=== PATIENT | male | born 1955 | race Caucasian/White ===

== ENCOUNTER 2017-07-04 15:06 | Emergency (ER) | payer OTHER ==
[2017-07-04 15:20] VITALS: RESP 20; TEMP 98
[2017-07-04] MEDS ORDERED: ceFAZolin 1,000 MG VIAL IM STA (15:26)
--- NOTE | 2017-07-04 15:43 | ED ---
General Adult HPI - General Chief complaint: Wound/Laceration Stated complaint: thumb lac-sent by [email or web address] Time Seen by Provider: 07/04/17 15:25 Source: patient Mode of arrival: ambulatory Limitations: no limitations - History of Present Illness Initial comments: 62-year-old male presents to the emergency department for a chief complaint of laceration to the left thumb. Patient states he was using a table saw today when he lacerated his thumb. Patient went to [facility] where he had an x-ray performed which demonstrated a fracture of the distal phalanx of the left thumb. Patient states he is left-handed. According to the patient At [facility] the wound was soaked for 10 minutes in sterile water and iodine and numbed with lidocaine. He presented to the emergency department with a wrap on his left thumb. X-rays were uploaded into our system. Patient states he also had a tetanus shot at [facility]. Patient states he has full sensation in his thumb and has full range of motion in his right thumb. Patient states he needs more lidocaine to numb it further. - Related Data Home Medications Medication Instructions Recorded Confirmed Beclomethasone Dipropionate [Qvar 1 puff INHALATION RT-DAILY 09/16/14 12/26/14 80 mcg/puff] Amiodarone [Cordarone] 200 mg PO DAILY 12/26/14 12/26/14 Metoprolol Tartrate [Lopressor] 25 mg PO BID 12/26/14 12/26/14 Tiotropium 18 Mcg/Puff [Spiriva] 1 cap INHALATION RT-DAILY 12/26/14 12/26/14 traMADol HCl [Ultram] 50 mg PO Q6H PRN 12/26/14 12/26/14 Previous Rx's Medication Instructions Recorded Colchicine [Colcrys] 0.6 mg PO BID #60 tab 10/11/14 Omeprazole [PriLOSEC] 20 mg PO AC-BID #30 capsule. 10/11/14 Indomethacin [Indocin] 25 mg PO BID #20 cap 12/29/14 Cephalexin [Keflex] 250 mg PO Q6HR #40 cap 07/04/17 Allergies Allergy/AdvReac Type Severity Reaction Status Date / Time No Known Allergies Allergy Verified 07/04/17 15:20 Review of Systems ROS Statement: Those systems with pertinent positive or pertinent negative responses have been documented in the HPI. ROS Other: All systems not noted in ROS Statement are negative. Past Medical History Past Medical History: Atrial Fibrillation, Chest Pain / Angina, COPD, Hypertension, Renal Disease Additional Past Medical History / Comment(s): 12/26/14 Pt presented to Health system ER with about 3 months of having L sided chest pain. He was seen at [facility] on Wednesday and was to have a Ccath tomorrow. A cat scan done at [facility] 12/26/14 showed R renal calculus, diverticulosis, and small to moderate pericardial effusion. Pt's L sided sharp achy chest pain became worse this morning so pt decided to come to [facility] this AM. Pt was last admitted to [facility] with paroxysmal Afib, chest pain possible pericarditis, moderate pericardial effusion-an echo at that time showed moderate pericardial effusion, EF of 50-55%, mild mitral and tricuspid regurg. Other HX: Paroxysmal AFib, Chronic neck pain-= HAD MRI AND DIAGNOSED WITH BULGING NECK DISC. SENT TO PAIN MANAGEMENT HAD EPIDURAL INJECTIONS , HISTORY OF several KIDNEY STONES, hematuria, L and R wrist fx in the past. History of Any Multi-Drug Resistant Organisms: None Reported Past Surgical History: No Surgical Hx Reported, Tonsillectomy Additional Past Surgical History / Comment(s): APPROX 30 YEARS AGO HAD LITHOTRIPSY AT [place] Past Anesthesia/Blood Transfusion Reactions: No Reported Reaction Past Psychological History: No Psychological Hx Reported Smoking Status: Former smoker Past Alcohol Use History: None Reported Past Drug Use History: None Reported - Past Family History Mother History Unknown: Yes Additional Family Medical History / Comment(s): TAKES NO MEDICATIONS IS AGE 8787 YEARS OLD Father Family Medical History: Cancer Additional Family Medical History / Comment(s): STOMACH CANCER General Exam Limitations: no limitations Head exam: Present: atraumatic, normocephalic, normal inspection Respiratory exam: Present: normal lung sounds bilaterally. Absent: respiratory distress, wheezes, rales, rhonchi, stridor Cardiovascular Exam: Present: regular rate, normal rhythm, normal heart sounds. Absent: systolic murmur, diastolic murmur, rubs, gallop, clicks Extremities exam: Present: full ROM (Full range of motion in the left thumb.), normal capillary refill (Refill less than 2 seconds in the upper extremities bilaterally including the left thumb.), other (There is a 2.5 cm laceration to the palmar aspect of the left thumb. Nail is intact. There is a slight 0.5 cm disruption of skin as it was removed by the saw.). Absent: tenderness, joint swelling Course Vital Signs 07/04/17 07/04/17 15:17 16:20 Temperature 98.0 F 98.0 F Pulse Rate 56 L 66 Respiratory 20 20 Rate Blood Pressure 140/78 124/78 O2 Sat by Pulse 98 100 Oximetry Procedures - Procedures Initial comment: Body area: palmar aspect of left thumb Laceration length: 2.5 cm Foreign bodies: no foreign bodies Tendon involvement: none Nerve involvement: none Vascular damage: no Anesthesia: local infiltration Local anesthetic: 2 mL 1% lidocaine given to each side of the thumb to perform a digital block Preparation: Patient was prepped and draped in the usual sterile fashion. Irrigation solution: Sterile water Irrigation method: sterile water jet lavage Skin closure: 6 4-0 Ethilon using sterile technique Number of sutures: 6 Technique: interupted Dressing: antibiotic ointment/ tube gauze Patient tolerance: Patient tolerated the procedure well with no immediate complications. Medical Decision Making - Medical Decision Making 62-year-old male presents to the emergency department with laceration to the left thumb. Patient is left-handed. Patient went to [facility] her he received an x-ray. The physician at [facility] read the x-ray as a fracture to the distal phalanx of the left thumb. Patien's laceration was soaked in iodine and water and cleaned at [facility]. It was also numbed. Upon presentation patient neurovascular status of the left thumb was intact. Capillary refill less than 2 seconds. Radial pulse 2+ in the left hand. Patient had full range of motion and sensation of the left thumb. Wound was further cleaned with iodine and sterile water. 6 4-0 Ethilon sutures were placed in the thumb. Patient was given a shot of Ancef and will continue to take by mouth Keflex in case there is a fracture in the thumb. Patient was given tetanus shot at the urgent care.. I do not visualize a fracture of the thumb on the x-ray obtained at [facility] but patient will still be sent to orthopedics. Patient states he will follow up tomorrow. He was educated on signs of infection and will return to the emergency Department if he notices any signs of infection. Disposition Clinical Impression: Laceration Disposition: HOME SELF-CARE Condition: Good Instructions: Care For Your Stitches (ED), Laceration (ED) Additional Instructions: Please take ibuprofen or Tylenol for pain relief. Please follow-up with orthopedics in one to 2 days. Please return to the emergency department if you notice signs of infection or worsening symptoms. Prescriptions: Cephalexin [Keflex] 250 mg PO Q6HR #40 cap Referrals: Erin Pederson MD [Primary Care Provider] - 1-2 days Georgi Amaya DO [Doctor of Osteopathic Medicine] - 1-2 days Time of Disposition: 16:14
[2017-07-04 16:22] VITALS: BP 124/78; PULSE 66
== END 2017-07-04 16:22 | disposition home or self-care (01) ==
LOC: EC 15:06
DX: S61.012A Laceration without foreign body of left thumb without damage to nail, initial encounter (principal); J44.9 Chronic obstructive pulmonary disease, unspecified; I10 Essential (primary) hypertension; I48.0 Paroxysmal atrial fibrillation; Z87.891 Personal history of nicotine dependence; Z79.52 Long term (current) use of systemic steroids; Z79.899 Other long term (current) drug therapy; W31.2XXA Contact with powered woodworking and forming machines, initial encounter; Y93.89 Activity, other specified; Y92.89 Other specified places as the place of occurrence of the external cause
CPT/HCPCS: 99283; 12001; 96372; J0690

== ENCOUNTER 2023-04-09 16:47 | Inpatient (IN) | payer MEDICARE ==
--- NOTE | 2023-04-09 17:03 | ED ---
General Adult HPI - General Stated complaint: SAKSHI-Afib Time Seen by Provider: 04/09/23 17:01 Source: patient, RN notes reviewed - History of Present Illness Initial comments: 67-year-old male presents to the emergency appointment for evaluation of cough, congestion 1 week. He states that today he noticed that his heart rate was elevated at home. Patient reports that she started to develop some right-sided chest discomfort and shortness of breath. Patient reports a history of COPD and afib. He states that he is not currently on his medications. He states that he has not been on them for 5 years. He is not on blood thinners. - Related Data Home Medications Medication Instructions Recorded Confirmed No Known Home Medications 04/09/23 04/09/23 Allergies Allergy/AdvReac Type Severity Reaction Status Date / Time No Known Allergies Allergy Verified 04/09/23 20:03 Review of Systems ROS Statement: Those systems with pertinent positive or pertinent negative responses have been documented in the HPI. ROS Other: All systems not noted in ROS Statement are negative. Past Medical History Past Medical History: Atrial Fibrillation, Chest Pain / Angina, COPD, Hypertension, Renal Disease Additional Past Medical History / Comment(s): 12/26/14 Pt presented to [facility] ER with about 3 months of having L sided chest pain. He was seen at [facility] on Wednesday and was to have a Ccath tomorrow. A cat scan done at [facility] 12/26/14 showed R renal calculus, diverticulosis, and small to moderate pericardial effusion. Pt's L sided sharp achy chest pain became worse this morning so pt decided to come to [facility] this AM. Pt was last admitted to [facility] 10/09/14 with paroxysmal Afib, chest pain possible pericarditis, moderate pericardial effusion-an echo at that time showed moderate pericardial effusion, EF of 50-55%, mild mitral and tricuspid regurg. Other HX: Paroxysmal AFib, Chronic neck pain-= HAD MRI AND DIAGNOSED WITH BULGING NECK DISC. SENT TO PAIN MANAGEMENT HAD EPIDURAL INJECTIONS , HISTORY OF several KIDNEY STONES, hematuria, L and R wrist fx in the past. History of Any Multi-Drug Resistant Organisms: None Reported Past Surgical History: No Surgical Hx Reported, Tonsillectomy Additional Past Surgical History / Comment(s): APPROX 30 YEARS AGO HAD LITHOTRIPSY AT [place] Past Anesthesia/Blood Transfusion Reactions: No Reported Reaction Past Psychological History: No Psychological Hx Reported Past Alcohol Use History: None Reported Past Drug Use History: None Reported - Past Family History Mother History Unknown: Yes Additional Family Medical History / Comment(s): TAKES NO MEDICATIONS IS AGE 8787 YEARS OLD Father Family Medical History: Cancer Additional Family Medical History / Comment(s): STOMACH CANCER General Exam Limitations: no limitations General appearance: alert, other (Mildly dyspneic) Head exam: Present: atraumatic, normocephalic, normal inspection Eye exam: Present: normal appearance, PERRL, EOMI. Absent: scleral icterus, conjunctival injection, periorbital swelling ENT exam: Present: normal exam, mucous membranes moist Neck exam: Present: normal inspection. Absent: tenderness, meningismus, lymphadenopathy Respiratory exam: Present: wheezes. Absent: normal lung sounds bilaterally, respiratory distress, rales, rhonchi, stridor Cardiovascular Exam: Present: tachycardia, irregular rhythm, normal heart sounds. Absent: systolic murmur, diastolic murmur, rubs, gallop, clicks GI/Abdominal exam: Present: soft, normal bowel sounds. Absent: distended, tenderness, guarding, rebound, rigid Back exam: Present: normal inspection Neurological exam: Present: alert, oriented X3 Psychiatric exam: Present: normal affect, normal mood Skin exam: Present: warm, dry, intact, normal color. Absent: rash Course Vital Signs 04/09/23 04/09/23 04/09/23 16:59 20:14 20:27 Temperature 98.9 F Pulse Rate 89 123 H 140 H Respiratory 20 Rate Blood Pressure 153/94 O2 Sat by Pulse 95 Oximetry 04/09/23 04/09/23 21:17 23:00 Temperature Pulse Rate 139 H 94 Respiratory 20 20 Rate Blood Pressure 135/81 153/80 O2 Sat by Pulse 97 97 Oximetry Medical Decision Making - Medical Decision Making Was pt. sent in by a medical professional or institution (, PA, TEACHER EMOTIONALLY IMPAIRED, urgent care, hospital, or shelter...) When possible be specific @ -No Did you speak to anyone other than the patient for history (EMS, parent, family, police, friend...)? What history was obtained from this source @ -No Did you review nursing and triage notes (agree or disagree)? Why? @ -I reviewed and agree with nursing and triage notes Were old charts reviewed (outside hosp., previous admission, EMS record, old EKG, old radiological studies, urgent care reports/EKG's, shelter records)? Report findings @ -No old charts were reviewed Differential Diagnosis (chest pain, altered mental status, abdominal pain women, abdominal pain men, vaginal bleeding, weakness, fever, dyspnea, syncope, headache, dizziness, GI bleed, back pain, seizure, CVA, palpatations, mental health, musculoskeletal)? @ -Differential Dyspnea: Coronary syndrome, arrhythmia, tamponade, asthma, COPD, pulmonary embolism, pneumonia, pneumothorax, pulmonary effusion, anaphylaxis, diabetic ketoacidosis, flailed chest, pulmonary contusion, diaphragmatic rupture, anemia, neuromuscular, this is not meant to be an all-inclusive list. EKG interpreted by me (3pts min.). @ -EKG at 1750 shows A. fib with RVR rate 119, QRS 83, QTQTc [id number] X-rays interpreted by me (1pt min.). @ -Chest x-ray shows no acute process, COPD changes CT interpreted by me (1pt min.). @ -None done U/S interpreted by me (1pt. min.). @ -None done What testing was considered but not performed or refused? (CT, X-rays, U/S, labs)? Why? @ -None What meds were considered but not given or refused? Why? @ -None Did you discuss the management of the patient with other professionals (professionals i.e. , PA, TEACHER EMOTIONALLY IMPAIRED, lab, RT, psych nurse, rn social work, lock up worker, teacher, principal gifts officer, director case management)? Give summary @ -Case discussed with Estefany Martínez with [facility] who is accepting of the admission Was smoking cessation discussed for >3mins.? @ -No Was critical care preformed (if so, how long)? @ -No Were there social determinants of health that impacted care today? How? (Homelessness, low income, unemployed, alcoholism, drug addiction, transportation, low edu. Level, literacy, decrease access to med. care, shelter, rehab)? @ -No Was there de-escalation of care discussed even if they declined (Discuss DNR or withdrawal of care, Hospice)? DNR status @ -No What co-morbidities impacted this encounter? (DM, HTN, Smoking, COPD, CAD, Cancer, CVA, ARF, Chemo, Hep., AIDS, mental health diagnosis, sleep apnea, morbid obesity)? @ -None Was patient admitted / discharged? Hospital course, mention meds given and route, prescriptions, significant lab abnormalities, going to OR and other pertinent info. @ -Admitted. Patient is admitted to the emergency department for evaluation of rapid heart rate and cough, congestion. EKG shows A. fib with RVR. Chest x-ray shows no acute process. CBC shows WBC 9.7, hemoglobin 18.5, coagulation studies within normal limits; CMP shows sodium 139, potassium 4.5, creatinine 1.21, negative troponin. Patient did test positive for RSV. Patient was put a bolus of Cardizem 15 mg and was started on a Cardizem drip. Patient will be admitted for A. fib with RVR with cardiology consultation. Case was discussed with Estefany with [facility] who is accepting of the admission. Patient stable at time of admission. Case discussed with Dr. Feliciano Undiagnosed new problem with uncertain prognosis? @ -No Drug Therapy requiring intensive monitoring for toxicity (Heparin, Nitro, Insulin, Cardizem)? @ -No Were any procedures done? @ -No Diagnosis/symptom? @ -afib with RVR Acute, or Chronic, or Acute on Chronic? @ -acute Uncomplicated (without systemic symptoms) or Complicated (systemic symptoms)? @ -uncomplicated Side effects of treatment? @ -No Exacerbation, Progression, or Severe Exacerbation? @ -No Poses a threat to life or bodily function? How? (Chest pain, [place], [place], pneumonia, PE, COPD, DKA, ARF, appy, cholecystitis, CVA, Diverticulitis, Homicidal, Suicidal, threat to staff... and all critical care pts) @ -No - Lab Data Result diagrams: 04/09/23 18:41 04/09/23 18:41 Lab Results 04/09/23 04/09/23 04/09/23 Range/Units 18:41 18:41 18:41 WBC 9.7 (3.8-10.6) k/uL RBC 5.69 (4.30-5.90) m/uL Hgb 18.5 H (13.0-17.5) gm/dL Hct 53.6 H (39.0-53.0) % MCV 94.2 (80.0-100.0) fL MCH 32.5 (25.0-35.0) pg MCHC 34.5 (31.0-37.0) g/dL RDW 13.0 (11.5-15.5) % Plt Count 140 L (150-450) k/uL MPV 10.9 Neutrophils % 80 % Lymphocytes % 8 % Monocytes % 10 % Eosinophils % 0 % Basophils % 0 % Neutrophils # 7.7 (1.3-7.7) k/uL Lymphocytes # 0.8 L (1.0-4.8) k/uL Monocytes # 0.9 (0-1.0) k/uL Eosinophils # 0.0 (0-0.7) k/uL Basophils # 0.0 (0-0.2) k/uL PT 12.0 (10.0-12.5) sec INR 1.1 (<1.2) APTT 26.1 (22.0-30.0) sec Sodium (137-145) mmol/L Potassium (3.5-5.1) mmol/L Chloride (98-107) mmol/L Carbon Dioxide (22-30) mmol/L Anion Gap mmol/L BUN (9-20) mg/dL Creatinine (0.66-1.25) mg/dL Est GFR (CKD-EPI)AfAm (>60 ml/min/1.73 sqM) Est GFR (CKD-EPI)NonAf (>60 ml/min/1.73 sqM) Glucose (74-99) mg/dL Calcium (8.4-10.2) mg/dL Magnesium (1.6-2.3) mg/dL Total Bilirubin (0.2-1.3) mg/dL AST (17-59) U/L ALT (4-49) U/L Alkaline Phosphatase (38-126) U/L Troponin I (0.000-0.034) ng/mL Total Protein (6.3-8.2) g/dL Albumin (3.5-5.0) g/dL Influenza Type A (PCR) Not Detected (Not Detectd) Influenza Type B (PCR) Not Detected (Not Detectd) RSV (PCR) Detected A (Not Detectd) SARS-CoV-2 (PCR) Not Detected (Not Detectd) 04/09/23 04/09/23 Range/Units 18:41 19:38 WBC (3.8-10.6) k/uL RBC (4.30-5.90) m/uL Hgb (13.0-17.5) gm/dL Hct (39.0-53.0) % MCV (80.0-100.0) fL MCH (25.0-35.0) pg MCHC (31.0-37.0) g/dL RDW (11.5-15.5) % Plt Count (150-450) k/uL MPV Neutrophils % % Lymphocytes % % Monocytes % % Eosinophils % % Basophils % % Neutrophils # (1.3-7.7) k/uL Lymphocytes # (1.0-4.8) k/uL Monocytes # (0-1.0) k/uL Eosinophils # (0-0.7) k/uL Basophils # (0-0.2) k/uL PT (10.0-12.5) sec INR (<1.2) APTT (22.0-30.0) sec Sodium 139 (137-145) mmol/L Potassium 4.5 (3.5-5.1) mmol/L Chloride 101 (98-107) mmol/L Carbon Dioxide 24 (22-30) mmol/L Anion Gap 14 mmol/L BUN 16 (9-20) mg/dL Creatinine 1.21 (0.66-1.25) mg/dL Est GFR (CKD-EPI)AfAm 70 (>60 ml/min/1.73 sqM) Est GFR (CKD-EPI)NonAf 61 (>60 ml/min/1.73 sqM) Glucose 103 H (74-99) mg/dL Calcium 9.8 (8.4-10.2) mg/dL Magnesium 2.0 (1.6-2.3) mg/dL Total Bilirubin 1.8 H (0.2-1.3) mg/dL AST 36 (17-59) U/L ALT 29 (4-49) U/L Alkaline Phosphatase 97 (38-126) U/L Troponin I <0.012 (0.000-0.034) ng/mL Total Protein 9.5 H (6.3-8.2) g/dL Albumin 4.9 (3.5-5.0) g/dL Influenza Type A (PCR) (Not Detectd) Influenza Type B (PCR) (Not Detectd) RSV (PCR) (Not Detectd) SARS-CoV-2 (PCR) (Not Detectd) Disposition Clinical Impression: Atrial fibrillation with RVR Disposition: ADMITTED IP TO THIS HOSP Condition: Stable Is patient prescribed a controlled substance at d/c from ED?: No
--- NOTE | 2023-04-09 17:29 | XR ---
EXAMINATION TYPE: XR chest 2V DATE OF EXAM: 04/09/2023 5:21 PM CLINICAL INDICATION:Male, 67 years old with history of cough, congestion; [facility] COMPARISON: Chest radiographs from 12/26/2014 TECHNIQUE: XR chest 2V Frontal and lateral views of the chest. FINDINGS: Lungs/Pleura: There is flattening of the diaphragm with increased lucency of the lungs. No evidence o f pneumothorax, pleural effusion or focal consolidation. Pulmonary vascularity: Unremarkable. Heart/mediastinum: Cardiomediastinal silhouette is unremarkable. Musculoskeletal: No acute osseous pathology. IMPRESSION: 1. No acute cardiopulmonary disease process. 2. COPD changes.
[2023-04-09] MEDS ORDERED: IPRATROPIUM-ALBUTEROL 3 ML NEB INHALATION STA (19:02)
[2023-04-09] MEDS ORDERED: SODIUM CHLORIDE 0.9% 1,000 ML IV STA (19:02)
[2023-04-09] MEDS ORDERED: DILTIAZEM DRIP BOLUS FROM BAG 1 MG SOLN IV ONE ×2 (19:02→21:17)
[2023-04-09 19:25] LABS: ALT 29 U/L (4-49); AST 36 U/L (17-59); African American GFR (CKD) 70 (>60 ml/min/1.73 sqM); Albumin 4.9 g/dL (3.5-5.0); Alkaline Phosphatase 97 U/L (38-126); Anion Gap 14 mmol/L; Basophils % (A) 0 %; Blood Urea Nitrogen 16 mg/dL (9-20); Calcium 9.8 mg/dL (8.4-10.2); Carbon Dioxide 24 mmol/L (22-30); Chloride 101 mmol/L (98-107); Eosinophils % (A) 0 %; Glucose 103 mg/dL (74-99); HCT 53.6 % (39.0-53.0); HGB 18.5 gm/dL (13.0-17.5); Lymphocytes # (A) 0.8 k/uL (1.0-4.8); Lymphocytes % (A) 8 %; MCH 32.5 pg (25.0-35.0); MCHC 34.5 g/dL (31.0-37.0); MCV 94.2 fL (80.0-100.0); Mean Platelet Volume 10.9; Monocytes # (A) 0.9 k/uL (0-1.0); Monocytes % (A) 10 %; Neutrophils # (A) 7.7 k/uL (1.3-7.7); Neutrophils % (A) 80 %; Non-African American GFR(CKD) 61 (>60 ml/min/1.73 sqM); Platelet Count 140 k/uL (150-450); Potassium 4.5 mmol/L (3.5-5.1); RBC 5.69 m/uL (4.30-5.90); Sodium 139 mmol/L (137-145); Total Bilirubin 1.8 mg/dL (0.2-1.3); Total Protein 9.5 g/dL (6.3-8.2); WBC 9.7 k/uL (3.8-10.6)
[2023-04-09] MEDS: DILTIAZEM 125 MG in SODIUM CHLORIDE 0.9% 100 ML IV SCH (19:48)
[2023-04-09 19:49] LABS: INR 1.1 (<1.2); Partial Thromboplastin Time 26.1 sec (22.0-30.0)
[2023-04-09] MEDS: SODIUM CHLORIDE 0.9% 1,000 ML IV SCH (19:55)
[2023-04-09] MEDS ORDERED: MAGNESIUM SULFATE-D5W PMX 1 GM in DEXTROSE/WATER 1 100ML.BAG IVPB ONE (21:17)
[2023-04-09] MEDS ORDERED: IBUPROFEN 400 MG TAB PO PRN (22:24)
[2023-04-09] MEDS ORDERED: ACETAMINOPHEN TAB 325 MG TAB PO PRN (22:24)
[2023-04-09] MEDS ORDERED: MORPHINE SULFATE 4 MG/ML SYRINGE IV PRN (22:24)
[2023-04-09] MEDS ORDERED: NALOXONE 0.4 MG/ML 1 ML VIAL IV PRN (22:24)
[2023-04-10] MEDS: SODIUM CHLORIDE 0.9% 1,000 ML IV SCH ×3 (03:40→18:27)
[2023-04-10] MEDS: DILTIAZEM 125 MG in SODIUM CHLORIDE 0.9% 100 ML IV SCH (06:30)
[2023-04-10] MEDS ORDERED: DEXTROSE 50% SYRINGE 50 ML IVP PRN ×2 (07:44)
--- NOTE | 2023-04-10 07:45 | P.HPIM ---
History of Present Illness This is a pleasant 67 years old male with past medical history of atrial fibrillation, COPD, hypertension, kidney stones, diverticulosis Patient presents because of feeling shortness of breath with cough and yellowish phlegm for the last few days, he has not a protective cuff in the beginning but no yellow and then creamy color as per patient His chest pain in the middle about 8/10, nonradiating. About pressure Patient in mild to moderate respiratory distress with limits his ability to answer questions and history information He quit smoking about 6 years ago, occasional alcohol no illicit drugs. Nice change in his urine or bowel habits, no abdominal pain vomiting diarrhea, no dysuria or urgency. Weakness or numbness or dizziness. Review of Systems Review of systems CONSTITUTIONAL: No fever, no malaise, no fatigue. HEENT: No recent visual problems or hearing problems. Denied any sore throat. CARDIOVASCULAR: No orthopnea, PND, no palpitations, no syncope. PULMONARY: No chest wall tenderness, no hemoptysis. GASTROINTESTINAL: No diarrhea, no nausea, no vomiting, no abdominal pain. Normoactive bowel sounds. NEUROLOGICAL: No headaches, no weakness, no numbness. HEMATOLOGICAL: Denies any bleeding or petechiae. GENITOURINARY: Denies any burning micturition, frequency, or urgency. MUSCULOSKELETAL/RHEUMATOLOGICAL: Denies any joint pain, swelling, or any muscle pain. ENDOCRINE: Denies any polyuria or polydipsia. Past Medical History Past Medical History: Atrial Fibrillation, Chest Pain / Angina, COPD, Hyper tension, Renal Disease Additional Past Medical History / Comment(s): 12/26/14 Pt presented to [facility] ER with about 3 months of having L sided chest pain. He was seen at [facility] on Wednesday and was to have a Ccath tomorrow. A cat scan done at [facility] 12/26/14 showed R renal calculus, diverticulosis, and small to moderate pericardial effusion. Pt's L sided sharp achy chest pain became worse this morning so pt decided to come to [facility] this AM. Pt was last admitted to [facility] 10/09/14 with paroxysmal Afib, chest pain possible pericarditis, moderate pericardial effusion-an echo at that time showed moderate pericardial effusion, EF of 50-55%, mild mitral and tricuspid regurg. Other HX: Paroxysmal AFib, Chronic neck pain-= HAD MRI AND DIAGNOSED WITH BULGING NECK DISC. SENT TO PAIN MANAGEMENT HAD EPIDURAL INJECTIONS , HISTORY OF several KIDNEY STONES, hematur ia, L and R wrist fx in the past. History of Any Multi-Drug Resistant Organisms: None Reported Past Surgical History: No Surgical Hx Reported, Tonsillectomy Additional Past Surgical History / Comment(s): APPROX 30 YEARS AGO [place]OTRIPSY [place] Past Anesthesia/Blood Transfusion Reactions: No Reported Reaction Past Psychological History: No Psychological Hx Reported Past Alcohol Use History: None Reported Past Drug Use History: None Reported - Past Family History Mother History Unknown: Yes Additional Family Medical History / Comment(s): TAKES NO MEDICATIONS IS AGE 8787 YEARS OLD Father Family Medical History: Cancer Additional Family Medical History / Comment(s): STOMACH CANCER Medications and Allergies Home Medications Medication Instructions Recorded Confirmed Type No Known Home Medications 04/09/23 04/09/23 History Allergies Allergy/AdvReac Type Severity Reaction Status Date / Time No Known Allergies Allergy Verified 04/09/23 20:03 Physical Exam Vitals: Vital Signs Temp Pulse Resp BP Pulse Ox 04/10/23 06:00 98.8 F 89 20 145/84 98 04/10/23 03:40 89 20 145/90 98 04/10/23 00:52 91 20 157/107 98 04/09/23 23:00 94 20 153/80 97 04/09/23 21:17 139 H 20 135/81 97 04/09/23 20:27 140 H 04/09/23 20:14 123 H 04/09/23 16:59 98.9 F 89 20 153/94 95 Intake and Output 04/09/23 04/09/23 04/10/23 14:59 22:59 06:59 Intake Total 7.333 92.333 Balance 7.333 92.333 Intake: Intake, IV Titration 7.333 92.333 Amount Diltiazem 125 mg In 7.333 92.333 Sodium Chloride 0.9% 100 ml @ 5 MG/HR 5 mls/hr IV .Q24H [facility] Rx#:[id number] Other: Weight 102.058 kg GENERAL: The patient is alert and oriented x3, not in any acute distress. Well developed, well nourished. HEENT: Pupils are round and equally reacting to light. EOMI. No scleral icterus. No conjunctival pallor. Normocephalic, atraumatic. No pharyngeal erythema. No thyromegaly. CARDIOVASCULAR: S1 and S2 present. No murmurs, rubs, or gallops. -PULMONARY: Chest is clear to auscultation, bilateral expiratory wheezing , no crackles. ABDOMEN: Soft, nontender, nondistended, normoactive bowel sounds. No palpable organomegaly. MUSCULOSKELETAL: No joint swelling or deformity. EXTREMITIES: No cyanosis, clubbing, or pedal edema. NEUROLOGICAL: Gross neurological examination did not reveal any focal deficits. SKIN: No rashes. no petechiae. Results CBC & Chem 7: 04/09/23 18:41 04/09/23 18:41 Labs: Abnormal Lab Results - Last 24 Hours (Table) 04/09/23 04/09/23 04/09/23 Range/Units 18:41 18:41 18:41 Hgb 18.5 H (13.0-17.5) gm/dL Hct 53.6 H (39.0-53.0) % Plt Count 140 L (150-450) k/uL Lymphocytes # 0.8 L (1.0-4.8) k/uL Glucose 103 H (74-99) mg/dL Total Bilirubin 1.8 H (0.2-1.3) mg/dL Total Protein 9.5 H (6.3-8.2) g/dL RSV (PCR) Detected A (Not Detectd) Assessment and Plan Assessment: Acute COPD exacerbation Acute RSV bronchitis Atrial fibrillation with RVR, present on admission hypertension History of kidney stone Area of diverticulosis Plan: Continue with Cardizem drip Continue with normal saline Start IV Solu-Medrol and bronchodilator Start Norvasc 5 mg Cardiology and pulmonary consult Labs and medication were reviewed.. Continue same treatment. Continue with symptomatic treatment. Resume home medication. Monitor labs and vitals. DVT and GI prophylaxis. Further recommendations as per clinical course of the patient DVT prophylaxis: Subcutaneous heparin GI Prophylaxis: Pepcid PT/OT: Pending Prognosis is guarded
[2023-04-10] MEDS: FAMOTIDINE 20 MG/2 ML VIAL IV SCH ×2 (07:59→20:18)
[2023-04-10] MEDS: methylPREDNISolone SOD SUCCI 40 MG/ML 1 ML VIAL IV SCH ×2 (07:59→16:32)
[2023-04-10 08:09] LABS: Glucose,Whole Blood 121 mg/dL (70-110)
[2023-04-10] MEDS: IPRATROPIUM-ALBUTEROL 3 ML NEB INHALATION PRN ×2 (08:23→21:17)
[2023-04-10] MEDS: BUDESONIDE 0.5 MG/2 ML NEBU INHALATION SCH ×2 (08:23→21:17)
[2023-04-10] MEDS ORDERED: HEPARIN SODIUM,PORCINE 5,000 UNIT/ML 1 ML VIAL SQ SCH (09:00)
--- NOTE | 2023-04-10 12:46 | P.CNPUL ---
History of Present Illness Consult date: 04/10/23 Reason for consult: dyspnea History of present illness: This is a 67-year-old male patient, a ex-smoker along with history of chronic A. fib. The patient is not seeing his primary care physician regular basis and the patient is not taking any medications. The patient is currently coming into the hospital because of worsening shortness of breath, chest tightness, wheezing along with A. fib with RVR. The patient is currently on a Cardizem drip for rate control. Further investigation revealed that the patient was infected with RSV. His is also having respiratory illness at home. No fever. No chills. No angina. No palpitations. He is bronchospastic and wheezy and the patient was started on DuoNeb nebulized treatments [id number] and IV Solu- Medrol. He is also on Cardizem drip at 5 mg an hour for rate control. No i ntracardiac evidence for now. Noted the patient is not taking any form of anticoagulation also on outpatient basis. The chest x-ray shows no evidence of any pneumonia. The patient did not see the health diagnostics teacher before. He is not utilizing any form of respiratory medications or inhalers on outpatient basis. He is currently on 3 L with a pulse ox ranging between 95 and 97%. No leg edema. No signs of any congestion heart failure. Review of Systems CONSTITUTIONAL: No fever, no malaise, no fatigue. HEENT: No recent visual problems or hearing problems. Denied any sore throat. CARDIOVASCULAR: No orthopnea, PND, no palpitations, no syncope. PULMONARY: No chest wall tenderness, no hemoptysis. GASTROINTESTINAL: No diarrhea, no nausea, no vomiting, no abdominal pain. Normoactive bowel sounds. NEUROLOGICAL: No headaches, no weakness, no numbness. HEMATOLOGICAL: Denies any bleeding or petechiae. GENITOURINARY: Denies any burning micturition, frequency, or urgency. MUSCULOSKELETAL/RHEUMATOLOGICAL: Denies any joint pain, swelling, or any muscle pain. ENDOCRINE: Denies any polyuria or polydipsia. Past Medical History Past Medical History: Atrial Fibrillation, Chest Pain / Angina, COPD, Hypertension, Renal Disease Additional Past Medical History / Comment(s): 12/26/14 Pt presented to [facility] ER with about 3 months of having L sided chest pain. He was seen at [facility] on Wednesday and was to have a Ccath tomorrow. A cat scan done at [facility] 12/26/14 showed R renal calculus, diverticulosis, and small to moderate pericardial effusion. Pt's L sided sharp achy chest pain became worse this morning so pt [facility] with paroxysmal Afib, chest pain possible pericarditis, moderate pericardial effusion-an echo at that time showed moderate pericardial effusion, EF of 50-55%, mild mitral and tricuspid regurg. Other HX: Paroxysmal AFib, Chronic neck pain-= HAD MRI AND DIAGNOSED WITH BULGING NECK DISC. SENT TO PAIN MANAGEMENT HAD EPIDURAL INJECTIONS , HISTORY OF several KIDNEY STONES, hematuria, L and R wrist fx in the past. History of Any Multi-Drug Resistant Organisms: None Reported Past Surgical History: No Surgical Hx Reported, Tonsillectomy Additional Past Surgical History / Comment(s): APPROX 30 YEARS AGO HAD LITHOTRIPSY AT [facility] Past Anesthesia/Blood Transfusion Reactions: No Reported Reaction Past Psychological History: No Psychological Hx Reported Past Alcohol Use History: None Reported Past Drug Use History: None Reported - Past Family History Mother History Unknown: Yes Additional Family Medical History / Comment(s): TAKES NO MEDICATIONS IS AGE 8787 YEARS OLD Father Family Medical History: Cancer Additional Family Medical History / Comment(s): STOMACH CANCER Medications and Allergies Home Medications Medication Instructions Recorded Confirmed Type No Known Home Medications 04/09/23 04/09/23 History Allergies Allergy/AdvReac Type Severity Reaction Status Date / Time No Known Allergies Allergy Verified 04/09/23 20:03 Physical Exam Vitals: Vital Signs Temp Pulse Resp BP Pulse Ox 04/10/23 11:22 97 20 159/94 97 04/10/23 11:00 100 20 100/60 98 04/10/23 08:35 110 H 20 04/10/23 08:23 110 H 20 95 04/10/23 08:06 107 H 20 145/80 98 04/10/23 06:00 98.8 F 89 20 145/84 98 04/10/23 03:40 89 20 145/90 98 04/10/23 00:52 91 20 157/107 98 04/09/23 23:00 94 20 153/80 97 04/09/23 21:17 139 H 20 135/81 97 04/09/23 20:27 140 H 04/09/23 20:14 123 H 04/09/23 16:59 98.9 F 89 20 153/94 95 Intake and Output 04/09/23 04/10/23 04/10/23 22:59 06:59 14:59 Intake Total 7.333 92.333 Balance 7.333 92.333 Intake: Intake, IV Titration 7.333 92.333 Amount Diltiazem 125 mg In 7.333 92.333 Sodium Chloride 0.9% 100 ml @ 5 MG/HR 5 mls/hr IV .Q24H [facility] Rx#:[id number] Other: Weight 102.058 kg GENERAL: The patient is alert and oriented x3, not in any acute distress. Well developed, well nourished. The patient is currently on 3 L of oxygen by nasal cannula HEENT: Pupils are round and equally reacting to light. EOMI. No scleral icterus. No conjunctival pallor. Normocephalic, atraumatic. No pharyngeal erythema. No thyromegaly. CARDIOVASCULAR: S1 and S2 present. No murmurs, rubs, or gallops. -PULMONARY: Diffuse expiratory wheezes throughout the lung field bilaterally and the patient is prolongation of the exhalation phase of breathing ABDOMEN: Soft, nontender, nondistended, normoactive bowel sounds. No palpable organomegaly. MUSCULOSKELETAL: No joint swelling or deformity. EXTREMITIES: No cyanosis, clubbing, or pedal edema. NEUROLOGICAL: Gross neurological examination did not reveal any focal deficits. SKIN: No rashes. no petechiae. Results - Laboratory Findings CBC and BMP: 04/09/23 18:41 04/09/23 18:41 PT/INR, D-dimer PT 12.0 sec (10.0-12.5) 04/09/23 18:41 INR 1.1 (<1.2) 04/09/23 18:41 Abnormal lab findings: Abnormal Labs 04/09/23 04/09/23 04/09/23 18:41 18:41 18:41 Hgb 18.5 H Hct 53.6 H Plt Count 140 L Lymphocytes # 0.8 L Glucose 103 H POC Glucose (mg/dL) Total Bilirubin 1.8 H Total Protein 9.5 H RSV (PCR) Detected A 04/10/23 07:58 Hgb Hct Plt Count Lymphocytes # Glucose POC Glucose (mg/dL) 121 H Total Bilirubin Total Protein RSV (PCR) - Diagnostic Findings Chest x-ray: image reviewed Assessment and Plan Plan: Acute exacerbation of COPD secondary to RSV infection Acute RSV tracheobronchitis Acute hypoxic respiratory failure currently on 3 L of oxygen by nasal cannula Ex-smoker Chronic into fibrillation with rapid ventricular response due to stress by COPD exacerbation. Plan Titrate oxygen flow to maintain saturation above 90%, currently on 3 L DuoNeb about treatments [id number] Pulmicort Respules 0.5 mg twice a day IV Solu-Medrol 60 mg every 6 hours Chest x-ray is clear Cardizem drip for rate control Echocardiogram Anticoagulation per cardiology We'll continue to follow
[2023-04-10] MEDS: INSULIN ASPART (NovoLOG) 100 UNIT/ML VIAL SQ SCH ×3 (13:33→20:23)
--- NOTE | 2023-04-10 14:17 | P.CRDCN ---
History of Present Illness Consult date: 04/10/23 History of present illness: HISTORY OF PRESENTING ILLNESS 67-year-old presents to the hospital because of worsening shortness of breath, chest tightness. On admission he was tested positive for RSV. In ER he received IV steroids and breathing treatments and then he is feeling better. On admission he was also noticed to have atrial fibrillation with rapid ventricular response. He does have history of A. fib which was initially diagnosed in 2014. At that time he had a heart catheterization which showed mild nonobstructive coronary artery disease. He has not followed up with any distribution a class lineman. He reports that he is not on any medications for his atrial fibrillation. He is not any systemic anticoagulation. He denies any history of strokes. His ECG shows atrial fibrillation with rapid ventricular response with no significant ST-T wave changes Labs shows polycythemia, low platelet count, normal troponin levels Chest x-ray does not show pulmonary congestion REVIEW OF SYSTEMS 14 point review of system is negative except what is mentioned above in HPI. PHYSICAL EXAMINATION Vital signs reviewed. Head: Normocephalic. Eyes: Sclerae nonicteric. Neck: Brisk carotid upstroke, no jugular venous distention. Lungs: Mild wheezing. Heart: Irregularly irregular, S1-S2, no S3, no murmur or rub. Abdomen: Soft nontender, positive bowel sounds no organomegaly. Extremities: No edema, intact distal pulses. Neuro: Alert, oritented, no focal deficits ASSESSMENT Atrial fibrillation with rapid ventricular response Chronic atrial fibrillation Noncompliance to medications not on any systemic anticoagulation Acute hypoxic respiratory failure RSV tracheobronchitis Acute COPD exacerbation Polycythemia with low platelet count PLAN Start Eliquis 5 mg twice a day Start beta elieser 50 minutes twice a day. Stop Cardizem drip and IV heparin drip Obtain echocardiogram Treatment of RSV, acute hypoxic respiratory failure and COPD as per pulmonary team Patient will need outpatient hematology workup for polycythemia and low platelet counts Patient will need outpatient evaluation chronic atrial fibrillation and get evaluated for possible rhythm control strategy Past Medical History Past Medical History: Atrial Fibrillation, Chest Pain / Angina, COPD, Hypertension, Renal Disease Additional Past Medical History / Comment(s): 12/26/14 Pt presented to [facility] ER with about 3 months of having L sided chest pain. He was seen at [facility] on Wednesday and was to have a Ccath tomorrow. A cat scan done at [facility] 12/26/14 showed R renal calculus, diverticulosis, and small to moderate perica rdial effusion. Pt's L sided sharp achy chest pain became worse this morning so pt decided to come to [facility] this AM. Pt was last admitted to [facility] 10/09/14 with paroxysmal Afib, chest pain possible pericarditis, moderate pericardial effusion-an echo at that time showed moderate pericardial effusion, EF of 50- 55%, mild mitral and tricuspid regurg. Other HX: Paroxysmal AFib, Chronic neck pain-= HAD MRI AND DIAGNOSED WITH BULGING NECK DISC. SENT TO PAIN MANAGEMENT HAD EPIDURAL INJECTIONS , HISTORY OF several KIDNEY STONES, hematuria, L and R wrist fx in the past. History of Any Multi-Drug Resistant Organisms: None Reported Past Surgical History: No Surgical Hx Reported, Tonsillectomy Additional Past Surgical History / Comment(s): APPROX 30 YEARS AGO HAD LITHOTRIPSY AT [place] Past Anesthesia/Blood Transfusion Reactions: No Reported Reaction Past Psychological History: No Psychological Hx Reported Past Alcohol Use History: None Reported Past Drug Use History: None Reported - Past Family History Mother History Unknown: Yes Additional Family Medical History / Comment(s): TAKES NO MEDICATIONS IS AGE 8787 YEARS OLD Father Family Medical History: Cancer Additional Family Medical History / Comment(s): STOMACH CANCER Medications and Allergies Home Medications Medication Instructions Recorded Confirmed Type No Known Home Medications 04/09/23 04/09/23 History Allergies Allergy/AdvReac Type Severity Reaction Status Date / Time No Known Allergies Allergy Verified 04/09/23 20:03 Physical Exam Vitals: Vital Signs Temp Pulse Resp BP Pulse Ox 04/10/23 13:50 98.3 F 79 20 120/69 98 04/10/23 11:22 97 20 159/94 97 04/10/23 11:00 100 20 100/60 98 04/10/23 08:35 110 H 20 04/10/23 08:23 110 H 20 95 04/10/23 08:06 107 H 20 145/80 98 04/10/23 06:00 98.8 F 89 20 145/84 98 04/10/23 03:40 89 20 145/90 98 04/10/23 00:52 91 20 157/107 98 04/09/23 23:00 94 20 153/80 97 04/09/23 21:17 139 H 20 135/81 97 04/09/23 20:27 140 H 04/09/23 20:14 123 H 04/09/23 16:59 98.9 F 89 20 153/94 95 Intake and Output 04/09/23 04/10/23 04/10/23 22:59 06:59 14:59 Intake Total 7.333 92.333 Balance 7.333 92.333 Intake: Intake, IV Titration 7.333 92.333 Amount Diltiazem 125 mg In 7.333 92.333 Sodium Chloride 0.9% 100 ml @ 5 MG/HR 5 mls/hr IV .Q24H [facility] Rx#:[id number] Other: Weight 102.058 kg Results 04/09/23 18:41 04/09/23 18:41 Cardiac Enzymes 04/09/23 04/09/23 Range/Units 18:41 19:38 AST 36 (17-59) U/L Troponin I <0.012 (0.000-0.034) ng/mL Coagulation 04/09/23 Range/Units 18:41 PT 12.0 (10.0-12.5) sec APTT 26.1 (22.0-30.0) sec CBC 04/09/23 Range/Units 18:41 WBC 9.7 (3.8-10.6) k/uL RBC 5.69 (4.30-5.90) m/uL Hgb 18.5 H (13.0-17.5) gm/dL Hct 53.6 H (39.0-53.0) % Plt Count 140 L (150-450) k/uL Comprehensive Metabolic Panel 04/09/23 Range/Units 18:41 Sodium 139 (137-145) mmol/L Potassium 4.5 (3.5-5.1) mmol/L Chloride 101 (98-107) mmol/L Carbon Dioxide 24 (22-30) mmol/L BUN 16 (9-20) mg/dL Creatinine 1.21 (0.66-1.25) mg/dL Glucose 103 H (74-99) mg/dL Calcium 9.8 (8.4-10.2) mg/dL AST 36 (17-59) U/L ALT 29 (4-49) U/L Alkaline Phosphatase 97 (38-126) U/L Total Protein 9.5 H (6.3-8.2) g/dL Albumin 4.9 (3.5-5.0) g/dL Current Medications Generic Name Dose Route Start Last Admin Trade Name Freq PRN Reason Stop Dose Admin Acetaminophen 650 mg 04/09/23 22:24 Acetaminophen Tab 325 Mg Tab PO Q6HR PRN Mild Pain or Fever > 100.5 Albuterol/Ipratropium 3 ml 04/10/23 07:43 04/10/23 08:23 Ipratropium-Albuterol 3 Ml Neb INHALATION 3 ml RT-QID PRN Administration Shortness Of Breath Or Wheezing Apixaban 5 mg 04/10/23 21:00 Apixaban 5 Mg Tab PO BID KERA Protocol Budesonide 0.5 mg 04/10/23 08:00 04/10/23 08:23 Budesonide 0.5 Mg/2 Ml Nebu INHALATION 0.5 mg RT-BID KERA Administration Dextrose/Water 25 ml 04/10/23 07:44 Dextrose 50% Syringe 50 Ml IVP PER PROTOCOL PRN Hypoglycemia Protocol Dextrose/Water 50 ml 04/10/23 07:44 Dextrose 50% Syringe 50 Ml IVP PER PROTOCOL PRN Hypoglycemia Protocol Famotidine 20 mg 04/10/23 09:00 04/10/23 07:59 Famotidine 20 Mg/2 Ml Vial IV 20 mg Q12HR [facility]ERA Administration Sodium Chloride 1,000 mls @ 130 mls/hr 04/09/23 19:15 04/10/23 11:30 Saline 0.9% IV 130 mls/hr .[id number] [facility] Administration Ibuprofen 400 mg 04/09/23 22:24 Ibuprofen 400 Mg Tab PO Q6HR PRN Mild Pain or Fever > 100.5 Insulin Aspart 0 unit 04/10/23 12:30 04/10/23 13:33 Insulin Aspart (Novolog) 100 Unit/Ml Vial SQ Not Given ACHS KERA Protocol Methylprednisolone Sodium Succinate 40 mg 04/10/23 08:00 04/10/23 07:59 Methylprednisolone Sod Succi 40 Mg/Ml 1 Ml Vial IV 40 mg Q8HR [facility] Administration Metoprolol Succinate 50 mg 04/10/23 14:15 Metoprolol Succinate (Er) 50 Mg Tab.Er.24h PO DAILY KERA Morphine Sulfate 4 mg 04/09/23 22:24 Morphine Sulfate 4 Mg/Ml Syringe IV Q4HR PRN Severe Pain (Scale 7 to 10) Naloxone HCl 0.2 mg 04/09/23 22:24 Naloxone 0.4 Mg/Ml 1 Ml Vial IV Q2M PRN Opioid Reversal Intake and Output 04/09/23 04/10/23 04/10/23 22:59 06:59 14:59 Intake Total 7.333 92.333 Balance 7.333 92.333 Intake: Intake, IV Titration 7.333 92.333 Amount Diltiazem 125 mg In 7.333 92.333 Sodium Chloride 0.9% 100 ml @ 5 MG/HR 5 mls/hr IV .Q24H [facility] Rx#:[id number] Other: Weight 102.058 kg 04/09/23 18:41 04/09/23 18:41
[2023-04-10] MEDS: METOPROLOL SUCCINATE (ER) 50 MG TAB.ER.24H PO SCH (16:29)
[2023-04-10 18:31] LABS: Glucose,Whole Blood 141 mg/dL (70-110)
--- NOTE | 2023-04-10 19:09 | CA ---
Transthoracic Echo Report Name: Celestine Dickey Age: 67 Gender: M : 1955 Exam Date: 04/10/2023 12:11 Exam Location: [place] [facility] Ht (in): 76 Wt (lb): 225 Ordering Physician: Gregg Smith MD ([id number]) Attending/Referring Phys: Radiagraph Operator Maribel Dominguez RDCS Procedure CPT: Indications: afib Cardiac Hx: Technical Quality: Technically difficult study Contrast 1: N/A Total Dose (mL): Contrast 2: Total Dose (mL): MEASUREMENTS (Male / Female) Normal Values 2D ECHO LV Diastolic Diameter PLAX 3.7 cm 4.2 - 5.9 / 3.9 - 5.3 cm LV Systolic Diameter PLAX 2.5 cm IVS Diastolic Thickness 1.2 cm 0.6 - 1.0 / 0.6 - 0.9 cm LVPW Diastolic Thickness 1.3 cm 0.6 - 1.0 / 0.6 - 0.9 cm LV Relative Wall Thickness 0.7 RV Internal Dim ED PLAX 3.7 cm LA Systolic Diameter LX 4.3 cm 3.0 - 4.0 / 2.7 - 3.8 cm LV Diastolic Volume MOD BP 60.8 cm??? 67 - 155 / 56 - 104 cm??? LV Systolic Volume MOD BP 21.8 cm??? 22 - 58 / 19 - 49 cm??? LV Ejection Fraction MOD BP 64.2 % >= 55 % LV Cardiac Index MOD BP 1262.2 cm???/min???m??? LV Diastolic Volume MOD 4C 71.2 cm??? LV Systolic Volume MOD 4C 24.3 cm??? LV Ejection Fraction MOD 4C 65.8 % LV Cardiac Index MOD 4C 1515.3 cm???/min???m??? LV Diastolic Length 4C 7.8 cm LV Systolic Length 4C 6.1 cm LV Diastolic Volume MOD 2C 48.6 cm??? LV Systolic Volume MOD 2C 17.0 cm??? LV Ejection Fraction MOD 2C 64.9 % LV Cardiac Index MOD 2C 1020.0 cm???/min???m??? LV Diastolic Length 2C 8.5 cm LV Systolic Length 2C 7.1 cm LA Volume 70.8 cm??? 18 - 58 / 22 - 52 cm??? LA Volume Index 30.1 cm???/m??? 16 - 28 cm???/m??? M-MODE Aortic Root Diameter MM 3.3 cm AV Cusp Separation MM 1.9 cm DOPPLER AV Peak Velocity 105.3 cm/s AV Peak Gradient 4.4 mmHg MV Area PHT 4.0 cm??? MV Deceleration Time 168.7 ms TR Peak Velocity 286.2 cm/s TR Peak Gradient 32.8 mmHg Right Ventricular Systolic Press 36.1 mmHg FINDINGS Left Ventricle Left ventricular ejection fraction is estimated at 60-65 %. Small left ventricular cavity. Mildly increased septal wall thickness. Right Ventricle Mild right ventricular dilatation. Mild pulmonary hypertension. Right Atrium Mild right atrial dilatation Left Atrium Moderate left atrial dilatation Mitral Valve Structurally normal mitral valve. Trace to mild mitral regurgitation. Aortic Valve Trileaflet aortic valve. No aortic valve stenosis or regurgitation. Tricuspid Valve Structurally normal tricuspid valve. Mild tricuspid regurgitation. Pulmonic Valve Pulmonic valve not well visualized. Pericardium No pericardial effusion. Aorta Normal size aortic root and proximal ascending aorta. CONCLUSIONS Left ventricular ejection fraction is estimated at 60-65 %. Small left ventricular cavity. Mildly increased septal wall thickness. No obvious regional wall motion abnormality Moderate left atrial dilatation. Mild right atrial dilatation. No obvious valvular dysfunction No pericardial effusion Previewed by: Dr Gregg Smith (Electronically Signed) Final Date: 10 April 2023 19:09
[2023-04-10 20:18] LABS: Glucose,Whole Blood 202 mg/dL (70-110)
[2023-04-10] MEDS: APIXABAN 5 MG TAB PO SCH (20:18)
[2023-04-11] MEDS: methylPREDNISolone SOD SUCCI 40 MG/ML 1 ML VIAL IV SCH ×2 (00:35→08:25)
[2023-04-11] MEDS: SODIUM CHLORIDE 0.9% 1,000 ML IV SCH ×4 (02:59→23:44)
[2023-04-11 06:12] LABS: Glucose,Whole Blood 139 mg/dL (70-110)
[2023-04-11] MEDS: INSULIN ASPART (NovoLOG) 100 UNIT/ML VIAL SQ SCH ×4 (06:59→20:30)
[2023-04-11] MEDS: BUDESONIDE 0.5 MG/2 ML NEBU INHALATION SCH ×2 (07:40→20:28)
[2023-04-11] MEDS: IPRATROPIUM-ALBUTEROL 3 ML NEB INHALATION PRN ×2 (07:40→20:28)
[2023-04-11] MEDS: APIXABAN 5 MG TAB PO SCH ×2 (08:25→20:29)
[2023-04-11] MEDS: METOPROLOL SUCCINATE (ER) 50 MG TAB.ER.24H PO SCH ×2 (08:25→20:29)
[2023-04-11] MEDS: FAMOTIDINE 20 MG/2 ML VIAL IV SCH ×2 (08:25→20:29)
[2023-04-11 09:57] LABS: Basophils % (A) 0 %; Eosinophils % (A) 0 %; HCT 51.8 % (39.0-53.0); HGB 16.8 gm/dL (13.0-17.5); Lymphocytes # (A) 0.6 k/uL (1.0-4.8); Lymphocytes % (A) 7 %; MCH 31.5 pg (25.0-35.0); MCHC 32.5 g/dL (31.0-37.0); Mean Platelet Volume 10.1; Monocytes # (A) 0.4 k/uL (0-1.0); Monocytes % (A) 4 %; Neutrophils # (A) 7.4 k/uL (1.3-7.7); Neutrophils % (A) 86 %; Platelet Count 127 k/uL (150-450); RBC 5.34 m/uL (4.30-5.90); RDW 13.1 % (11.5-15.5); WBC 8.5 k/uL (3.8-10.6)
[2023-04-11 10:12] LABS: African American GFR (CKD) 87 (>60 ml/min/1.73 sqM); Anion Gap 14 mmol/L; Blood Urea Nitrogen 20 mg/dL (9-20); Calcium 9.5 mg/dL (8.4-10.2); Carbon Dioxide 24 mmol/L (22-30); Chloride 105 mmol/L (98-107); Glucose 174 mg/dL (74-99); Non-African American GFR(CKD) 75 (>60 ml/min/1.73 sqM); Potassium 4.8 mmol/L (3.5-5.1); Sodium 143 mmol/L (137-145)
--- NOTE | 2023-04-11 10:12 | P.PN ---
Subjective This is a pleasant 67 years old male with past medical history of atrial fibrillation, COPD, hypertension, kidney stones, diverticulosis Patient presents because of feeling shortness of breath with cough and yellowish phlegm for the last few days, he has not a protective cuff in the beginning but no yellow and then creamy color as per patient His chest pain in the middle about 8/10, nonradiating. About pressure Patient in mild to moderate respiratory distress with limits his ability to answer questions and history information He quit smoking about 6 years ago, occasional alcohol no illicit drugs. Nice change in his urine or bowel habits, no abdominal pain vomiting diarrhea, no dysuria or urgency. Weakness or numbness or dizziness. 04/11/2023 Patient still developed wheezing and shortness of breath but improved compared to yesterday If there is little anxious with tremor secondary to breathing treatment and he drinks a lot of coffee 3-4 large cups coffee. No chest pain. No other new complaints. Heart rate was controlled earlier but was slightly tachycardic this morning He is on 3 L oxygen with good oxygen saturation reviewed of the loop stable Ejection fraction 60-65% History of normal saline with 30 mL per hour, Solu-Medrol 60 mg and Eliquis 5 mg added for him Review of systems CONSTITUTIONAL: No fever, no malaise, no fatigue. HEENT: No recent visual problems or hearing problems. Denied any sore throat. CARDIOVASCULAR: No orthopnea, PND, no palpitations, no syncope. PULMONARY: No chest wall tenderness, no hemoptysis. GASTROINTESTINAL: No diarrhea, no nausea, no vomiting, no abdominal pain. Normoactive bowel sounds. NEUROLOGICAL: No headaches, no weakness, no numbness. Active Medications Generic Name Dose Route Start Last Admin Trade Name Freq PRN Reason Stop Dose Admin Acetaminophen 650 mg 04/09/23 22:24 Acetaminophen Tab 325 Mg Tab PO Q6HR PRN Mild Pain or Fever > 100.5 Albuterol/Ipratropium 3 ml 04/10/23 07:43 04/11/23 07:40 Ipratropium-Albuterol 3 Ml Neb INHALATION 3 ml RT-QID PRN Administration Shortness Of Breath Or Wheezing Apixaban 5 mg 04/10/23 21:00 04/11/23 08:25 Apixaban 5 Mg Tab PO 5 mg BID [facility] Administration Protocol Budesonide 0.5 mg 04/10/23 08:00 04/11/23 07:40 Budesonide 0.5 Mg/2 Ml Nebu INHALATION 0.5 mg RT-BID [facility] Administration Dextrose/Water 25 ml 04/10/23 07:44 Dextrose 50% Syringe 50 Ml IVP PER PROTOCOL PRN Hypoglycemia Protocol Dextrose/Water 50 ml 04/10/23 07:44 Dextrose 50% Syringe 50 Ml IVP PER PROTOCOL PRN Hypoglycemia Protocol Famotidine 20 mg 04/10/23 09:00 04/11/23 08:25 Famotidine 20 Mg/2 Ml Vial IV 20 mg Q12HR [facility] Administration Sodium Chloride 1,000 mls @ 130 mls/hr 04/09/23 19:15 04/11/23 02:59 Saline 0.9% IV 130 mls/hr .[id number] [facility] Administration Ibuprofen 400 mg 04/09/23 22:24 Ibuprofen 400 Mg Tab PO Q6HR PRN Mild Pain or Fever > 100.5 Insulin Aspart 0 unit 04/10/23 12:30 04/11/23 06:59 Insulin Aspart (Novolog) 100 Unit/Ml Vial SQ Not Given ACHS [facility] Protocol Methylprednisolone Sodium Succinate 60 mg 04/11/23 12:00 Methylprednisolone Sod Succi 125 Mg/2 Ml Vial IV Q6HR [facility] Metoprolol Succinate 50 mg 04/10/23 14:15 04/11/23 08:25 Metoprolol Succinate (Er) 50 Mg Tab.Er.24h PO 50 mg DAILY [facility] Administration Morphine Sulfate 4 mg 04/09/23 22:24 Morphine Sulfate 4 Mg/Ml Syringe IV Q4HR PRN Severe Pain (Scale 7 to 10) Naloxone HCl 0.2 mg 04/09/23 22:24 Naloxone 0.4 Mg/Ml 1 Ml Vial IV Q2M PRN Opioid Reversal Objective - Vital Signs Vital signs: Vital Signs Temp 97.9 F 04/11/23 08:00 Pulse 147 H 04/11/23 08:00 Resp 24 04/11/23 08:00 BP 136/92 04/11/23 08:00 Pulse Ox 97 04/11/23 08:00 FiO2 Intake & Output 04/10/23 04/11/23 04/11/23 18:59 06:59 18:59 Intake Total 982.663 2196 486 Output Total 1800 Balance 125.667 -770 486 Weight 102.058 kg Intake: IV 10 10 10 Invasive Line 1 10 Invasive Line 2 10 10 Intake, IV Titration 115.667 Amount Diltiazem 125 mg In 115.667 Sodium Chloride 0.9% 100 ml @ 5 MG/HR 5 mls/hr IV .Q24H [facility] Rx#:[id number] Oral 1020 476 Output: Urine 1800 Other: Voiding Method Urinal Urinal - Exam GENERAL: The patient is alert and oriented x3, not in any acute distress. Well developed, well nourished. HEENT: Pupils are round and equally reacting to light. EOMI. No scleral icterus. No conjunctival pallor. Normocephalic, atraumatic. No pharyngeal erythema. No thyromegaly. CARDIOVASCULAR: S1 and S2 present. No murmurs, rubs, or gallops. -PULMONARY: Chest is clear to auscultation, no wheezing , no crackles. ABDOMEN: Soft, nontender, nondistended, normoactive bowel sounds. No palpable organomegaly. MUSCULOSKELETAL: No joint swelling or deformity. EXTREMITIES: No cyanosis, clubbing, or pedal edema. NEUROLOGICAL: Gross neurological examination did not reveal any focal deficits. SKIN: No rashes. no petechiae. - Labs CBC & Chem 7: 04/11/23 09:02 04/09/23 18:41 Labs: Abnormal Lab Results - Last 24 Hours (Table) 04/10/23 04/10/23 04/11/23 Range/Units 18:30 20:17 06:11 Plt Count (150-450) k/uL Lymphocytes # (1.0-4.8) k/uL POC Glucose (mg/dL) 141 H 202 H 139 H (70-110) mg/dL 04/11/23 Range/Units 09:02 Plt Count 127 L (150-450) k/uL Lymphocytes # 0.6 L (1.0-4.8) k/uL POC Glucose (mg/dL) (70-110) mg/dL Microbiology - Last 24 Hours (Table) 04/10/23 08:30 Gram Stain - Preliminary Sputum Assessment and Plan Assessment: Acute COPD exacerbation Acute RSV bronchitis Atrial fibrillation with RVR, present on admission hypertension History of kidney stone Area of diverticulosis Plan: Continue with metoprolol on liquids Continue with normal saline Start IV Solu-Medrol and bronchodilator Start Norvasc 5 mg Cardiology and pulmonary consult Labs and medication were reviewed.. Continue same treatment. Continue with symptomatic treatment. Resume home medication. Monitor labs and vitals. DVT and GI prophylaxis. Further recommendations as per clinical course of the patient DVT prophylaxis: Subcutaneous heparin GI Prophylaxis: Pepcid PT/OT: Pending Prognosis is guarded
[2023-04-11 11:45] LABS: Glucose,Whole Blood 140 mg/dL (70-110)
[2023-04-11] MEDS: methylPREDNISolone SOD SUCCI 125 MG/2 ML VIAL IV SCH ×3 (12:31→23:42)
--- NOTE | 2023-04-11 12:40 | P.PN ---
Subjective Progress Note Date: 04/11/23 This is a 67-year-old male patient, a ex-smoker along with history of chronic A. fib. The patient is not seeing his primary care physician regular basis and the patient is not taking any medications. The patient is currently coming into the hospital because of worsening shortness of breath, chest tightness, wheezing along with A. fib with RVR. The patient is currently on a Cardizem drip for rate control. Further investigation revealed that the patient was infected with RSV. His is also having respiratory illness at home. No fever. No chills. No angina. No palpitations. He is bronchospastic and wheezy and the patient was started on DuoNeb nebulized treatments [id number] and IV Solu- Medrol. He is also on Cardizem drip at 5 mg an hour for rate control. No intracardiac evidence for now. Noted the patient is not taking any form of anticoagulation also on outpatient basis. The chest x-ray shows no evidence of any pneumonia. The patient did not see the insurance counsel before. He is not utilizing any form of respiratory medications or inhalers on outpatient basis. He is currently on 3 L with a pulse ox ranging between 95 and 97%. No leg edema. No signs of any congestion heart failure On today's evaluation of 04/11/2023, the patient is feeling slightly better comp ared to yesterday. He remains in atrial fibrillation. The cough, congestion /wheezing is slightly improved as the patient as the patient is currently on DuoNeb updrafts, [place] dressed feels, IV Solu-Medrol. He remains on metoprolol 50 mg by mouth daily for rate control regarding his chronic atrial fibrillation. No anticoagulants for now. Echo of the heart was also completed and the patient is a normal ejection fraction, moderate and a dilatation, no significant valvular dysfunction. Objective - Vital Signs Vital signs: Vital Signs Temp 97.9 F 04/11/23 08:00 Pulse 147 H 04/11/23 08:00 Resp 24 04/11/23 08:00 BP 136/92 04/11/23 08:00 Pulse Ox 97 04/11/23 08:00 FiO2 Intake & Output 04/10/23 04/11/23 04/11/23 18:59 06:59 18:59 Intake Total 688.904 5936 486 Output Total 1800 Balance 125.667 -770 486 Weight 102.058 kg Intake: IV 10 10 10 Invasive Line 1 10 Invasive Line 2 10 10 Intake, IV Titration 115.667 Amount Diltiazem 125 mg In 115.667 Sodium Chloride 0.9% 100 ml @ 5 MG/HR 5 mls/hr IV .Q24H [facility] Rx#:[id number] Oral 1020 476 Output: Urine 1800 Other: Voiding Method Urinal Urinal - Exam GENERAL: The patient is alert and oriented x3, not in any acute distress. Well developed, well nourished. The patient is currently on 3 L of oxygen by nasal cannula HEENT: Pupils are round and equally reacting to light. EOMI. No scleral icterus. No conjunctival pallor. Normocephalic, atraumatic. No pharyngeal erythema. No thyromegaly. CARDIOVASCULAR: S1 and S2 present. No murmurs, rubs, or gallops. -PULMONARY: Diffuse expiratory wheezes throughout the lung field bilaterally and the patient is prolongation of the exhalation phase of breathing ABDOMEN: Soft, nontender, nondistended, normoactive bowel sounds. No palpable organomegaly. MUSCULOSKELETAL: No joint swelling or deformity. EXTREMITIES: No cyanosis, clubbing, or pedal edema. NEUROLOGICAL: Gross neurological examination did not reveal any focal deficits. SKIN: No rashes. no petechiae. - Labs CBC & Chem 7: 04/11/23 09:02 04/11/23 09:02 Labs: Abnormal Lab Results - Last 24 Hours (Table) 04/10/23 04/10/23 04/11/23 Range/Units 18:30 20:17 06:11 POC Glucose (mg/dL) 141 H 202 H 139 H (70-110) mg/dL Microbiology - Last 24 Hours (Table) 04/10/23 08:30 Gram Stain - Preliminary Sputum Assessment and Plan Plan: Acute exacerbation of COPD secondary to RSV infection, slightly improved compared to yesterday and continues to be on bronchodilators and steroids Acute RSV tracheobronchitis Acute hypoxic respiratory failure currently on 3 L of oxygen by nasal cannula Ex-smoker Chronic into fibrillation with rapid ventricular response due to stress by COPD exacerbation. Echo was within normal limits without any overt dysfunction. Plan Titrate oxygen flow to maintain saturation above 90%, currently on 3 L DuoNeb about treatments [id number] Pulmicort Respules 0.5 mg twice a day IV Solu-Medrol 60 mg every 6 hours Chest x-ray is clear Start the patient on anticoagulation with Eliquis Echocardiogram was within normal limits Anticoagulation per cardiology We'll continue to follow
[2023-04-11 16:22] LABS: Glucose,Whole Blood 223 mg/dL (70-110)
--- NOTE | 2023-04-11 18:15 | P.PN ---
Subjective Progress Note Date: 04/11/23 Progress note 04/11/2023 Patient is slowly improving continues to still have wheezing. Hemodynamically stable. Still in atrial fibrillation. Heart rates are still poorly controlled. HISTORY OF PRESENTING ILLNESS 67-year-old presents to the hospital because of worsening shortness of breath, chest tightness. On admission he was tested positive for RSV. In ER he received IV steroids and breathing treatments and then he is feeling better. On admission he was also noticed to have atrial fibrillation with rapid ventricular response. He does have history of A. fib which was initially diagnosed in 2014. At that time he had a heart catheterization which showed mild nonobstructive coronary artery disease. 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 He reports that he is not on any medications for his atrial fibrillation. He is not any systemic anticoagulation. He denies any history of strokes. His ECG shows atrial fibrillation with rapid ventricular response with no significant ST-T wave changes Labs shows polycythemia, low platelet count, normal troponin levels Chest x-ray does not show pulmonary congestion REVIEW OF SYSTEMS 14 point review of system is negative except what is mentioned above in HPI. PHYSICAL EXAMINATION Vital signs reviewed. Head: Normocephalic. Eyes: Sclerae nonicteric. Neck: Brisk carotid upstroke, no jugular venous distention. Lungs: Mild wheezing. Heart: Irregularly irregular, S1-S2, no S3, no murmur or rub. Abdomen: Soft nontender, positive bowel sounds no organomegaly. Extremities: No edema, intact distal pulses. Neuro: Alert, oritented, no focal deficits ASSESSMENT Atrial fibrillation with rapid ventricular response Chronic atrial fibrillation Noncompliance to medications not on any systemic anticoagulation Acute hypoxic respiratory failure RSV tracheobronchitis Acute COPD exacerbation Polycythemia with low platelet count Echo showed an EF of 60%, small LV cavity, [id number] concentric LVH, moderate left atrial dilatation PLAN Start Eliquis 5 mg twice a day Start beta elieser 50 minutes twice a day. Stop Cardizem drip and IV heparin drip Treatment of RSV, acute hypoxic respiratory failure and COPD as per pulmonary team Patient will need outpatient hematology workup for polycythemia and low platelet counts Patient will need outpatient evaluation chronic atrial fibrillation and get evaluated for possible rhythm control strategy Objective - Vital Signs Vital signs: Vital Signs Temp 98.2 F 04/11/23 16:00 Pulse 95 04/11/23 16:00 Resp 22 04/11/23 16:00 BP 145/90 04/11/23 16:00 Pulse Ox 95 04/11/23 16:00 FiO2 Intake & Output 04/10/23 04/11/23 04/11/23 18:59 06:59 18:59 Intake Total 859.001 9696 726 Output Total 1800 1000 Balance 125.667 -770 -274 Weight 102.058 kg Intake: IV 10 10 10 Invasive Line 1 10 Invasive Line 2 10 10 Intake, IV Titration 115.667 Amount Diltiazem 125 mg In 115.667 Sodium Chloride 0.9% 100 ml @ 5 MG/HR 5 mls/hr IV .Q24H [facility] Rx#:[id number] Oral 1020 716 Output: Urine 1800 1000 Other: Voiding Method Urinal Urinal Urinal # Voids 1 # Bowel Movements 1 - Labs CBC & Chem 7: 04/11/23 09:02 04/11/23 09:02 Labs: Abnormal Lab Results - Last 24 Hours (Table) 04/10/23 04/10/23 04/11/23 Range/Units 18:30 20:17 06:11 Plt Count (150-450) k/uL Lymphocytes # (1.0-4.8) k/uL Glucose (74-99) mg/dL POC Glucose (mg/dL) 141 H 202 H 139 H (70-110) mg/dL 04/11/23 04/11/23 04/11/23 Range/Units 09:02 09:02 11:44 Plt Count 127 L (150-450) k/uL Lymphocytes # 0.6 L (1.0-4.8) k/uL Glucose 174 H (74-99) mg/dL POC Glucose (mg/dL) 140 H (70-110) mg/dL 04/11/23 Range/Units 16:21 Plt Count (150-450) k/uL Lymphocytes # (1.0-4.8) k/uL Glucose (74-99) mg/dL POC Glucose (mg/dL) 223 H (70-110) mg/dL Microbiology - Last 24 Hours (Table) 04/10/23 08:30 Gram Stain - Preliminary Sputum Sputum Culture - Preliminary
[2023-04-11 20:31] LABS: Glucose,Whole Blood 119 mg/dL (70-110)
[2023-04-12 05:45] LABS: Glucose,Whole Blood 129 mg/dL (70-110)
[2023-04-12] MEDS: INSULIN ASPART (NovoLOG) 100 UNIT/ML VIAL SQ SCH ×4 (05:47→20:51)
[2023-04-12] MEDS: SODIUM CHLORIDE 0.9% 1,000 ML IV SCH ×2 (05:55→14:42)
[2023-04-12] MEDS: methylPREDNISolone SOD SUCCI 125 MG/2 ML VIAL IV SCH ×4 (06:12→23:54)
[2023-04-12] MEDS: BUDESONIDE 0.5 MG/2 ML NEBU INHALATION SCH ×2 (08:24→21:49)
[2023-04-12] MEDS: IPRATROPIUM-ALBUTEROL 3 ML NEB INHALATION PRN ×4 (08:24→21:49)
[2023-04-12] MEDS: METOPROLOL SUCCINATE (ER) 50 MG TAB.ER.24H PO SCH ×2 (08:54→20:53)
[2023-04-12] MEDS: APIXABAN 5 MG TAB PO SCH ×2 (08:54→20:53)
[2023-04-12] MEDS: FAMOTIDINE 20 MG/2 ML VIAL IV SCH ×2 (08:54→20:54)
--- NOTE | 2023-04-12 11:01 | P.PN ---
Subjective This is a pleasant 67 years old male with past medical history of atrial fibrillation, COPD, hypertension, kidney stones, diverticulosis Patient presents because of feeling shortness of breath with cough and yellowish phlegm for the last few days, he has not a protective cuff in the beginning but no yellow and then creamy color as per patient His chest pain in the middle about 8/10, nonradiating. About pressure Patient in mild to moderate respiratory distress with limits his ability to answer questions and history information He quit smoking about 6 years ago, occasional alcohol no illicit drugs. Nice change in his urine or bowel habits, no abdominal pain vomiting diarrhea, no dysuria or urgency. Weakness or numbness or dizziness. 04/11/2023 Patient still developed wheezing and shortness of breath but improved compared to yesterday If there is little anxious with tremor secondary to breathing treatment and he drinks a lot of coffee 3-4 large cups coffee. No chest pain. No other new complaints. Heart rate was controlled earlier but was slightly tachycardic this morning He is on 3 L oxygen with good oxygen saturation reviewed of the loop stable Ejection fraction 60-65% History of normal saline with 30 mL per hour, Solu-Medrol 60 mg and Eliquis 5 mg added for him 04/12/2023 Patient was still wheezing this morning although it looks better, still using accessory respiratory muscles also admits less severe than yesterday. Also patient still has wheezing and I don't think is ready for discharge today. Also his heart rate was controlled in the morning about 84 went up against 125 Currently he is kept on metoprolol 50 mg twice a day and Eliquis 5 mg added, informed about this medication and he verbalized understanding and acceptance. He remains on IV Solu-Medrol 60 mg. No IV fluid Ejection fraction 60-65% Objective - Vital Signs Vital signs: Vital Signs Temp 97.7 F 04/12/23 09:01 Pulse 125 H 04/12/23 09:05 Resp 22 04/12/23 09:05 BP 131/95 04/12/23 09:01 Pulse Ox 96 04/12/23 09:01 FiO2 Intake & Output 04/11/23 04/12/23 04/12/23 18:59 06:59 18:59 Intake Total 726 450 Output Total 3998 259 2944 Balance -274 900 -550 Intake: IV 10 Invasive Line 1 10 Oral 716 450 Output: Urine 9599 988 8466 Other: Voiding Method Urinal Urinal Urinal # Voids 1 # Bowel Movements 1 - Exam GENERAL: The patient is alert and oriented x3, not in any acute distress. Well developed, well nourished. HEENT: Pupils are round and equally reacting to light. EOMI. No scleral icterus. No conjunctival pallor. Normocephalic, atraumatic. No pharyngeal erythema. No thyromegaly. CARDIOVASCULAR: S1 and S2 present. No murmurs, rubs, or gallops. -PULMONARY: Chest is clear to auscultation, no wheezing , no crackles. ABDOMEN: Soft, nontender, nondistended, normoactive bowel sounds. No palpable organomegaly. MUSCULOSKELETAL: No joint swelling or deformity. EXTREMITIES: No cyanosis, clubbing, or pedal edema. NEUROLOGICAL: Gross neurological examination did not reveal any focal deficits. SKIN: No rashes. no petechiae. - Labs CBC & Chem 7: 04/11/23 09:02 04/11/23 09:02 Labs: Abnormal Lab Results - Last 24 Hours (Table) 04/11/23 04/11/23 04/11/23 Range/Units 11:44 16:21 20:30 POC Glucose (mg/dL) 140 H 223 H 119 H (70-110) mg/dL 04/12/23 Range/Units 05:43 POC Glucose (mg/dL) 129 H (70-110) mg/dL Microbiology - Last 24 Hours (Table) 04/10/23 08:30 Gram Stain - Final Sputum Sputum Culture - Final Assessment and Plan Assessment: Acute COPD exacerbation Acute RSV bronchitis Atrial fibrillation with RVR, present on admission hypertension History of kidney stone Area of diverticulosis Plan: Continue with metoprolol on liquids Continue with normal saline Start IV Solu-Medrol and bronchodilator Start Norvasc 5 mg Cardiology and pulmonary consult Labs and medication were reviewed.. Continue same treatment. Continue with symptomatic treatment. Resume home medication. Monitor labs and vitals. DVT and GI prophylaxis. Further recommendations as per clinical course of the patient DVT prophylaxis: Subcutaneous heparin GI Prophylaxis: Pepcid PT/OT: Pending Prognosis is guarded
[2023-04-12 11:52] LABS: Glucose,Whole Blood 140 mg/dL (70-110)
[2023-04-12] MEDS: guaiFENesin-DM 600/30MG 1 EACH TAB.ER.12H PO SCH ×2 (13:14→20:54)
--- NOTE | 2023-04-12 13:33 | P.PN ---
Subjective Progress Note Date: 04/12/23 This is a 67-year-old male patient, a ex-smoker along with history of chronic A. fib. The patient is not seeing his primary care physician regular basis and the patient is not taking any medications. The patient is currently coming into the hospital because of worsening shortness of breath, chest tightness, wheezing along with A. fib with RVR. The patient is currently on a Cardizem drip for rate control. Further investigation revealed that the patient was infected with RSV. His is also having respiratory illness at home. No fever. No chills. No angina. No palpitations. He is bronchospastic and wheezy and the patient was started on DuoNeb nebulized treatments [id number] and IV Solu- Medrol. He is also on Cardizem drip at 5 mg an hour for rate control. No intracardiac evidence for now. Noted the patient is not taking any form of anticoagulation also on outpatient basis. The chest x-ray shows no evidence of any pneumonia. The patient did not see the manager programs before. He is not utilizing any form of respiratory medications or inhalers on outpatient basis. He is currently on 3 L with a pulse ox ranging between 95 and 97%. No leg edema. No signs of any congestion heart failure On today's evaluation of 04/11/2023, the patient is feeling slightly better comp ared to yesterday. He remains in atrial fibrillation. The cough, congestion /wheezing is slightly improved as the patient as the patient is currently on DuoNeb updrafts, [place] dress[place]ara feels, IV Solu-Medrol. He remains on metoprolol 50 mg by mouth daily for rate control regarding his chronic atrial fibrillation. No anticoagulants for now. Echo of the heart was also completed and the patient is a normal ejection fraction, moderate and a dilatation, no significant valvular dysfunction. On today's evaluation of 04/12/2023, the patient is actually she is improving and the patient is currently down to 2 liters of oxygen nasal cannula. He is obviously less short of breath compared to yesterday. He remains in atrial fibrillation. Still having episodes of tachycardia. For the most part his arches under better control compared to yesterday. The patient remains on DuoNeb updrafts. The patient remains on IV Solu-Medrol. The patient on metoprolol 50 mg by mouth twice a day and anticoagulation was also started and the patient is utilizing Eliquis 5 mg by mouth twice a day. He has no other specific complaints Objective - Vital Signs Vital signs: Vital Signs Temp 97.7 F 04/12/23 09:01 Pulse 110 H 04/12/23 11:16 Resp 20 04/12/23 11:16 BP 153/86 04/12/23 11:16 Pulse Ox 94 L 04/12/23 11:16 FiO2 Intake & Output 04/11/23 04/12/23 04/12/23 18:59 06:59 18:59 Intake Total 726 450 Output Total 4231 429 3919 Balance -142 -900 -550 Intake: IV 10 Invasive Line 1 10 Oral 716 450 Output: Urine 3361 977 2866 Other: Voiding Method Urinal Urinal Urinal # Voids 1 # Bowel Movements 1 - Exam GENERAL: The patient is alert and oriented x3, not in any acute distress. Well developed, well nourished. The patient is currently on 3 L of oxygen by nasal cannula HEENT: Pupils are round and equally reacting to light. EOMI. No scleral icterus. No conjunctival pallor. Normocephalic, atraumatic. No pharyngeal erythema. No thyromegaly. CARDIOVASCULAR: S1 and S2 present. No murmurs, rubs, or gallops. -PULMONARY: Diffuse expiratory wheezes throughout the lung field bilaterally and the patient is prolongation of the exhalation phase of breathing ABDOMEN: Soft, nontender, nondistended, normoactive bowel sounds. No palpable organomegaly. MUSCULOSKELETAL: No joint swelling or deformity. EXTREMITIES: No cyanosis, clubbing, or pedal edema. NEUROLOGICAL: Gross neurological examination did not reveal any focal deficits. SKIN: No rashes. no petechiae. - Labs CBC & Chem 7: 04/11/23 09:02 04/11/23 09:02 Labs: Abnormal Lab Results - Last 24 Hours (Table) 04/11/23 04/11/23 04/12/23 Range/Units 16:21 20:30 05:43 POC Glucose (mg/dL) 223 H 119 H 129 H (70-110) mg/dL 04/12/23 Range/Units 11:51 POC Glucose (mg/dL) 140 H (70-110) mg/dL Microbiology - Last 24 Hours (Table) 04/10/23 08:30 Gram Stain - Final Sputum Sputum Culture - Final Assessment and Plan Plan: Acute exacerbation of COPD secondary to RSV infection, slightly improved compared to yesterday and continues to be on bronchodilators and steroids, imp roving Acute RSV tracheobronchitis Acute hypoxic respiratory failure currently on 2 L of oxygen by nasal cannula and oxygen saturation is gradually improving Ex-smoker Chronic into fibrillation with rapid ventricular response due to stress by COPD exacerbation. Echo was within normal limits without any overt dysfunction. The patient is on metoprolol and anticoagulation with Eliquis Plan Titrate oxygen flow to maintain saturation above 90%, currently on 2 L DuoNeb about treatments [id number] Pulmicort Respules 0.5 mg twice a day IV Solu-Medrol 60 mg every 6 hours Chest x-ray is clear Start the patient on anticoagulation with Eliquis, 5 mg by mouth twice a day Continue metoprolol 50 mg twice a day Echocardiogram was within normal limits Anticoagulation per cardiology We'll continue to follow
--- NOTE | 2023-04-12 14:09 | P.PN ---
Subjective Progress Note Date: 04/12/23 Progress note 04/12/23 BP 158/86, heart rate 90 beats a minute, rate controlled atrial fibrillation on telemetry Patient reports feeling better. Denies any palpitations. Lungs are better on auscultation. 04/11/2023 Patient is slowly improving continues to still have wheezing. Hemodynamically stable. Still in atrial fibrillation. Heart rates are still poorly controlled. HISTORY OF PRESENTING ILLNESS 67-year-old presents to the hospital because of worsening shortness of breath, chest tightness. On admission he was tested positive for RSV. In ER he received IV steroids and breathing treatments and then he is feeling better. On admission he was also noticed to have atrial fibrillation with rapid ventricular response. He does have history of A. fib which was initially diagnosed in 2014. At that time he had a heart catheterization which showed mild nonobstructive co ronary artery disease. He has not followed up with any continuous improvement coach. He reports that he is not on any medications for his atrial fibrillation. He is not any systemic anticoagulation. He denies any history of strokes. His ECG shows atrial fibrillation with rapid ventricular response with no sign ificant ST-T wave changes Labs shows polycythemia, low platelet count, normal troponin levels Chest x-ray does not show pulmonary congestion REVIEW OF SYSTEMS 14 point review of system is negative except what is mentioned above in HPI. PHYSICAL EXAMINATION Vital signs reviewed. Head: Normocephalic. Eyes: Sclerae nonicteric. Neck: Brisk carotid upstroke, no jugular venous distention. Lungs: Mild wheezing. Heart: Irregularly irregular, S1-S2, no S3, no murmur or rub. Abdomen: Soft nontender, positive bowel sounds no organomegaly. Extremities: No edema, intact distal pulses. Neuro: Alert, oritented, no focal deficits ASSESSMENT Atrial fibrillation with rapid ventricular response Chronic atrial fibrillation Noncompliance to medications not on any systemic anticoagulation Acute hypoxic respiratory failure RSV tracheobronchitis Acute COPD exacerbation Polycythemia with low platelet count Echo showed an EF of 60%, small LV cavity, dcul-wo-ovmycrok concentric LVH, moderate left atrial dilatation PLAN Start Eliquis 5 mg twice a day Start metoprolol 50 mg twice a day. Treatment of RSV, acute hypoxic respiratory failure and COPD as per pulmonary team Patient will need outpatient hematology workup for polycythemia and low platelet counts Once patient recovers from RSV tracheobronchitis, he should be offered rhythm control strategy. I had a detailed discussion about this with the patient. Patient is agreeable. Outpatient follow-up for getting evaluated for NILO cardioversion once his antiarrhythmic use Objective - Vital Signs Vital signs: Vital Signs Temp 97.7 F 04/12/23 09:01 Pulse 90 04/12/23 13:11 Resp 20 04/12/23 11:16 BP 153/86 04/12/23 11:16 Pulse Ox 94 L 04/12/23 11:16 FiO2 Intake & Output 04/11/23 04/12/23 04/12/23 18:59 06:59 18:59 Intake Total 726 690 Output Total 6479 322 6405 Balance -274 900 -310 Intake: IV 10 Invasive Line 1 10 Oral 716 690 Output: Urine 3518 674 2920 Other: Voiding Method Urinal Urinal Urinal # Voids 1 1 # Bowel Movements 1 - Labs CBC & Chem 7: 04/11/23 09:02 04/11/23 09:02 Labs: Abnormal Lab Results - Last 24 Hours (Table) 04/11/23 04/11/23 04/12/23 Range/Units 16:21 20:30 05:43 POC Glucose (mg/dL) 223 H 119 H 129 H (70-110) mg/dL 04/12/23 Range/Units 11:51 POC Glucose (mg/dL) 140 H (70-110) mg/dL Microbiology - Last 24 Hours (Table) 04/10/23 08:30 Gram Stain - Final Sputum Sputum Culture - Final
[2023-04-12 16:49] LABS: Glucose,Whole Blood 177 mg/dL (70-110)
[2023-04-12 19:54] LABS: Glucose,Whole Blood 123 mg/dL (70-110)
[2023-04-13] MEDS: methylPREDNISolone SOD SUCCI 125 MG/2 ML VIAL IV SCH (05:18)
[2023-04-13] MEDS: SODIUM CHLORIDE 0.9% 1,000 ML IV SCH ×2 (05:18→10:24)
[2023-04-13 06:01] LABS: Glucose,Whole Blood 178 mg/dL (70-110)
[2023-04-13 06:38] VITALS: TEMP 97.8
[2023-04-13] MEDS: INSULIN ASPART (NovoLOG) 100 UNIT/ML VIAL SQ SCH (06:41)
[2023-04-13] MEDS: IPRATROPIUM-ALBUTEROL 3 ML NEB INHALATION PRN (08:46)
[2023-04-13] MEDS: BUDESONIDE 0.5 MG/2 ML NEBU INHALATION SCH (08:46)
[2023-04-13] MEDS ORDERED: VERAPAMIL 80 MG TAB PO SCH (09:00)
[2023-04-13] MEDS: guaiFENesin-DM 600/30MG 1 EACH TAB.ER.12H PO SCH (09:48)
[2023-04-13] MEDS: FAMOTIDINE 20 MG/2 ML VIAL IV SCH (09:48)
[2023-04-13] MEDS: APIXABAN 5 MG TAB PO SCH (09:48)
[2023-04-13 09:51] VITALS: RESP 16
[2023-04-13 11:54] LABS: Glucose,Whole Blood 147 mg/dL (70-110)
[2023-04-13 13:07] VITALS: BP 112/64; PULSE 97
--- NOTE | 2023-04-13 13:13 | P.PN ---
Subjective Progress Note Date: 04/13/23 Progress note 04/12/23 BP 158/86, heart rate 90 beats a minute, rate controlled atrial fibrillation on telemetry Patient reports feeling better. Denies any palpitations. Lungs are better on auscultation. HISTORY OF PRESENTING ILLNESS 67-year-old presents to the hospital because of worsening shortness of breath, chest tightness. On admission he was tested positive for RSV. In ER he received IV steroids and breathing treatments and then he is feeling better. On admission he was also noticed to have atrial fibrillation with rapid ventricular response. He does have history of A. fib which was initially diagnosed in 2014. At that time he had a heart catheterization which showed mild nonobstructive coronary artery disease. He has not followed up with any expanded function dental assistant. He reports that he is not on any medications for his atrial fibrillation. He is not any systemic ant icoagulation. He denies any history of strokes. His ECG shows atrial fibrillation with rapid ventricular response with no significant ST-T wave changes Labs shows polycythemia, low platelet count, normal troponin levels Chest x-ray does not show pulmonary congestion Echo showed an EF of 60%, small LV cavity, tuik-[id number]-ugzsnqqp concentric LVH, moderate left atrial dilatation 1/2 Patient remains in isolation for RSV. Telemetry is afib with controlled ventricular rate. Heart rate has been running between 70s and 90s, blood pressure 112/64, pulse ox 94% on room air. Patient has been started on eliquis and Toprol-XL 50 mg twice daily PHYSICAL EXAMINATION Vital signs reviewed. Head: Normocephalic. Eyes: Sclerae nonicteric. Neck: Brisk carotid upstroke, no jugular venous distention. Lungs: Mild wheezing. Heart: Irregularly irregular, S1-S2, no S3, no murmur or rub. Abdomen: Soft nontender, positive bowel sounds no organomegaly. Extremities: No edema, intact distal pulses. ASSESSMENT Atrial fibrillation with rapid ventricular response, currently rate controlled Chronic atrial fibrillation Noncompliance to medications not on any systemic anticoagulation Acute hypoxic respiratory failure RSV tracheobronchitis Acute COPD exacerbation Polycythemia with low platelet count PLAN Continue Eliquis 5 mg twice a day Discontinue metoprolol 50 mg twice a day and start patient on verapamil 80 mg 3 times daily. Treatment of RSV, acute hypoxic respiratory failure and COPD as per pulmonary team Patient will need outpatient hematology workup for polycythemia and low platelet counts At time of discharge, patient will follow-up with Dr. Smith in 2 weeks for probable NILO and cardioversion. Nurse practitioner note has been reviewed, I agree with the documented findings and plan of care. Patient was seen and examined. Objective - Vital Signs Vital signs: Vital Signs Temp 97.8 F 04/13/23 04:00 Pulse 90 04/13/23 08:46 Resp 18 04/13/23 08:46 BP 161/86 04/13/23 04:00 Pulse Ox 95 04/13/23 04:00 FiO2 Intake & Output 04/12/23 04/13/23 04/13/23 18:59 06:59 18:59 Intake Total 810 0 Output Total 1000 2 Balance -190 -2 Intake: Oral 810 0 Output: Urine 1000 Stool 2 Other: Voiding Method Urinal Urinal # Voids 1 1 # Bowel Movements 1 - Labs CBC & Chem 7: 04/11/23 09:02 04/11/23 09:02 Labs: Abnormal Lab Results - Last 24 Hours (Table) 04/12/23 04/12/23 04/12/23 Range/Units 11:51 16:47 19:53 POC Glucose (mg/dL) 140 H 177 H 123 H (70-110) mg/dL 04/13/23 Range/Units 05:58 POC Glucose (mg/dL) 178 H (70-110) mg/dL Microbiology - Last 24 Hours (Table) 04/10/23 08:30 Gram Stain - Final Sputum Sputum Culture - Final
--- NOTE | 2023-04-13 15:10 | P.PN ---
Subjective Progress Note Date: 04/13/23 Principal diagnosis: Acute exacerbation of COPD secondary to RSV infection This is a 67-year-old male patient, a ex-smoker along with history of chronic A. fib. The patient is not seeing his primary care physician regular basis and the patient is not taking any medications. The patient is currently coming into the hospital because of worsening shortness of breath, chest tightness, wheezing along with A. fib with RVR. The patient is currently on a Cardizem drip for rate control. Further investigation revealed that the patient was infected with RSV. His is also having respiratory illness at home. No fever. No chills. No angina. No palpitations. He is bronchospastic and wheezy and the patient was started on DuoNeb nebulized treatments exvnar-czz-bvzzv and IV Solu- Medrol. He is also on Cardizem drip at 5 mg an hour for rate control. No intracardiac evidence for now. Noted the patient is not taking any form of anticoagulation also on outpatient basis. The chest x-ray shows no evidence of any pneumonia. The patient did not see the cloth classer before. He is not utilizing any form of respiratory medications or inhalers on outpatient basis. He is currently on 3 L with a pulse ox ranging between 95 and 97%. No leg edema. No signs of any congestion heart failure On today's evaluation of 04/11/2023, the patient is feeling slightly better com pared to yesterday. He remains in atrial fibrillation. The cough, congestion /wheezing is slightly improved as the patient as the patient is currently on DuoNeb updrafts, [place] dressed feels, IV Solu-Medrol. He remains on metoprolol 50 mg by mouth daily for rate control regarding his chronic atrial fibrillation. No anticoagulants for now. Echo of the heart was also completed and the patient is a normal ejection fraction, moderate and a dilatation, no significant valvular dysfunction. On today's evaluation of 04/12/2023, the patient is actually she is improving and the patient is currently down to 2 liters of oxygen nasal cannula. He is obviously less short of breath compared to yesterday. He remains in atrial fibrillation. Still having episodes of tachycardia. For the most part his arches under better control compared to yesterday. The patient remains on DuoNeb updrafts. The patient remains on IV Solu-Medrol. The patient on metoprolol 50 mg by mouth twice a day and anticoagulation was also started and the patient is utilizing Eliquis 5 mg by mouth twice a day. He has no other specific complaints Reevaluated today on 04/13/2023, patient was admitted initially with acute exacerbation of COPD and RSV tracheobronchitis. Feeling definitely better, breathing easier, nonetheless he continues to have intermittent cough and some shortness of breath. Chest x-ray on admission showed no acute cardiopulmonary disease and COPD changes. Patient remains on the same bronchodilators including DuoNeb updrafts he is also on prednisone burst and taper, and on Pulmicort as well as Mucinex. Steadily improving. Objective - Vital Signs Vital signs: Vital Signs Temp 97.8 F 04/13/23 09:47 Pulse 97 04/13/23 12:48 Resp 16 04/13/23 12:48 BP 112/64 04/13/23 12:48 Pulse Ox 94 L 04/13/23 12:48 FiO2 Intake & Output 04/12/23 04/13/23 04/13/23 18:59 06:59 18:59 Intake Total 810 0 358 Output Total 1000 2 2 Balance -190 -2 356 Intake: Oral 810 0 358 Output: Urine 1000 Stool 2 2 Other: Voiding Method Urinal Urinal Urinal # Voids 1 1 # Bowel Movements 1 - Exam Physical Exam: Revealed a 67-year-old white male in no distress Head: Atraumatic, normocephalic. HEENT:[Neck is supple.] [No neck masses.] [No thyromegaly.] [No JVD.] Chest: [Clear throughout, no crackles, no rhonchi, no wheezes.] Cardiac Exam: [Wheezing on forced expiratory maneuver Abdomen: [Soft, nontender, no megaly, no rebound, no guarding, normal bowel sounds.] Extremities: [No clubbing, no edema, no cyanosis.] Neurological Exam: [No focal neurologic deficit.] Alert oriented 3 Psychiatric: Normal mood, affect and normal mental status examination. Skin: No rashes - Labs CBC & Chem 7: 04/11/23 09:02 04/11/23 09:02 Labs: Abnormal Lab Results - Last 24 Hours (Table) 04/12/23 04/12/23 04/13/23 Range/Units 16:47 19:53 05:58 POC Glucose (mg/dL) 177 H 123 H 178 H (70-110) mg/dL 04/13/23 Range/Units 11:52 POC Glucose (mg/dL) 147 H (70-110) mg/dL Assessment and Plan Assessment: Impression: Acute exacerbation of COPD Acute RSV tracheobronchitis Ex-smoker Chronic atrial fibrillation however the patient developed atrial fibrillation with RVR secondary to COPD exacerbation. Recommendation: Continue prednisone burst and taper Continue updrafts including Pulmicort and DuoNeb Continue eliquis and metoprolol We will continue to follow. If discharged home the patient needs to be on prednisone 40 mg tapered over 2 weeks and on cough suppression medications. Time with Patient: Less than 30
[2023-04-14] MEDS ORDERED: predniSONE 20 MG TAB PO SCH (09:00)
== END 2023-04-13 15:45 | disposition home or self-care (01) | DRG 190 ==
LOC: EC 16:47 → 3SCARD 22:24
PROVIDERS: ADMIT Hospitalist; ATTEND Hospitalist
PROC: 8E0ZXY6 Isolation (ICD-10-PCS; principal; 2023-04-09)
PROC: 3E033RZ Introduction of Antiarrhythmic into Peripheral Vein, Percutaneous Approach (ICD-10-PCS; 2023-04-09)
DX: J44.0 Chronic obstructive pulmonary disease with (acute) lower respiratory infection (principal); J96.01 Acute respiratory failure with hypoxia; J20.5 Acute bronchitis due to respiratory syncytial virus; J44.1 Chronic obstructive pulmonary disease with (acute) exacerbation; I48.0 Paroxysmal atrial fibrillation; Z28.310 Unvaccinated for COVID-19; D75.1 Secondary polycythemia; I10 Essential (primary) hypertension; I25.10 Atherosclerotic heart disease of native coronary artery without angina pectoris; G89.29 Other chronic pain; M54.2 Cervicalgia; T50.906A Underdosing of unspecified drugs, medicaments and biological substances, initial encounter; Z91.128 Patient's intentional underdosing of medication regimen for other reason; Z78.9 Other specified health status; Z87.891 Personal history of nicotine dependence; Z87.442 Personal history of urinary calculi
CPT/HCPCS: 36415; 71046; 80048; 80053; 83036; 83735; 84484; 85025; 85610; 85730; 87070; 87205; 87636; 93005; 93306; 94640; 94760; 96361; 96365; 96366; 96372; 96375; 96376; 99285

== ENCOUNTER 2023-04-29 06:03 | Day surgery (SDC) | payer MEDICARE ==
[2023-04-23 13:29] VITALS: BMI 26.2
[~2023-04-29 06:03] MED LIST: LACTATED RINGERS 1,000 ML IV SCH; LIDOCAINE 1% (10MG/ML) FOR IV START INTRADERMA PRN; SODIUM CHLORIDE 0.9% 1,000 ML IV SCH
[2023-04-29] MEDS ORDERED: SODIUM CHLORIDE 0.9% 500 ML 500 ML IV ONE ×2 (07:20)
[2023-04-29] MEDS ORDERED: PROPOFOL 10 MG/ML 20 ML VIAL IV ONE (07:25)
[2023-04-29 07:40] LABS: Basophils % (A) 0 %; Eosinophils # (A) 0.1 k/uL (0-0.7); Eosinophils % (A) 1 %; HGB 18.5 gm/dL (13.0-17.5); Lymphocytes # (A) 1.2 k/uL (1.0-4.8); Lymphocytes % (A) 11 %; MCH 31.8 pg (25.0-35.0); MCHC 33.5 g/dL (31.0-37.0); MCV 94.9 fL (80.0-100.0); Mean Platelet Volume 9.6; Monocytes # (A) 0.5 k/uL (0-1.0); Monocytes % (A) 5 %; Neutrophils # (A) 9.8 k/uL (1.3-7.7); Neutrophils % (A) 83 %; Platelet Count 170 k/uL (150-450); RBC 5.82 m/uL (4.30-5.90); RDW 13.1 % (11.5-15.5); WBC 11.8 k/uL (3.8-10.6)
[2023-04-29 07:48] LABS: HCT 55.3 % (39.0-53.0)
[2023-04-29 08:05] LABS: ALT 67 U/L (4-49); AST 39 U/L (17-59); African American GFR (CKD) 78 (>60 ml/min/1.73 sqM); Albumin 4.2 g/dL (3.5-5.0); Alkaline Phosphatase 79 U/L (38-126); Anion Gap 8 mmol/L; Blood Urea Nitrogen 19 mg/dL (9-20); Carbon Dioxide 24 mmol/L (22-30); Chloride 110 mmol/L (98-107); Glucose 129 mg/dL (74-99); Non-African American GFR(CKD) 68 (>60 ml/min/1.73 sqM); Potassium 4.5 mmol/L (3.5-5.1); Sodium 142 mmol/L (137-145); Total Bilirubin 1.5 mg/dL (0.2-1.3); Total Protein 8.4 g/dL (6.3-8.2)
[2023-04-29] MEDS ORDERED: SODIUM CHLORIDE 0.9% 1,000 ML IV ONE (08:37)
[2023-04-29] MEDS ORDERED: FUROSEMIDE 10 MG/ML 4 ML VIAL IV ONE (08:39)
[2023-04-29 08:54] VITALS: TEMP 98
[2023-04-29 09:43] VITALS: BP 140/72; PULSE 98; RESP 22
--- NOTE | 2023-04-29 13:13 | P.TEE ---
Date of Procedure: 04/29/23 Description of Procedure(s): Procedure performed: 1. Transesophageal Echocardiogram. 2. Synchronized Cardioversion. 3. Bubble study Indications: Persistent atrial fibrillation Consent: I have discussed the risks, benefits and alternative therapies for the above-mentioned procedure. The patient has indicated understanding and acceptance of the risks of the procedure. Signed consent was obtained and was placed in the paper chart. Moderate conscious sedation: Moderate conscious sedation was administered by anesthesia, see separate report. Procedural Steps: Timeout was performed in usual fashion. Patient's heart rate, blood pressure, oxygen saturation and ECG were monitored. After achieving appropriate moderate conscious sedation, NILO probe was advanced without difficulty and without any immediate complications to the esophagus. NILO study was performed with color flow doppler, pulsed wave doppler and continuous wave doppler. Agitated saline bubbles were injected to assess for any intra-atrial shunt. The probe was then removed. After making sure that there is no evidence of intracardiac thrombus, pacer pads were placed on patients chest and back. Synchronized cardioversion was perfromed using 200 J. [1] attempt. Sinus rhythm was confirmed with a 12 lead EKG. Patient tolerated the procedure well. Patient was transferred to the post procedure area in stable and satisfactory condition. Complications: none FINDINGS Left Atrium: Severe left atrial dilatation. No evidence of thrombus or mass. Left Atrial Appendage: No evidence of thrombus or mass seen in DANIELE. Slow flow Inter atrial septum: Intact inter-atrial septum. No evidence of atrial septal defect or patent foramen ovale on color doppler. Bubble study was inadequate. However there were no [id number] intracardiac shunting of bubble noticed. Left Ventricle: Normal global LV size and systolic function Right Atrium: Moderate right atrial dilatation. Right Ventricle: Normal global RV size and systolic function Aortic Valve: Structurally normal Trileaflet, no significant calcification. No significant stenosis or regurgitation on color doppler assessment. Mitral Valve: Struturally normal. Mild functional MR Pulmonic Valve: Not well visualized. Tricuspid Valve: Structurally normal. Mild to moderate TR Ascending aorta, Aortic root and Aortic arch: Mild intimal thickening. Ascending aorta and aortic root are not dilated CONCLUSION: Severe left atrial dilatation Moderate right atrial dilatation No evidence of thrombus in left atrium or left atrial appendage Mild functional MR Cardioversion was performed successful at 200 J, one attempt
--- NOTE | 2023-04-29 13:14 | P.EPPROC ---
- EP Procedure Note Date of Procedure: 04/29/23 Electrophysiology Procedure Note: After making sure that there is no evidence of intracardiac thrombus, pacer pads were placed on patients chest and back. Synchronized cardioversion was perfromed using 200 J. [1] attempt. Sinus rhythm was confirmed with a 12 lead EKG. Patient tolerated the procedure well. Patient was transferred to the post procedure area in stable and satisfactory condition. Postop plan Discharge home in 2 hours Follow-up outpatient in 1 week Reduce metoprolol to 25 mg twice a day from 50 mg twice a day Give 1 dose of IV Lasix 40 mg in the hospital due to dilated left atrium. Start laxis 40 mg by mouth daily for next 5 days. Get CMP and magnesium level in 4 days
[2023-04-29] MEDS ORDERED: fentaNYL (PF) 50 MCG/ML 2 ML AMP ONE (13:27)
== END 2023-04-29 09:56 | disposition home or self-care (01) ==
LOC: OR 06:03
PROVIDERS: ATTEND Student in an Organized Health Care Education/Training Program
DX: I51.7 Cardiomegaly (principal); I48.19 Other persistent atrial fibrillation; I20.9 Angina pectoris, unspecified; J44.9 Chronic obstructive pulmonary disease, unspecified; I10 Essential (primary) hypertension; N28.9 Disorder of kidney and ureter, unspecified; F12.90 Cannabis use, unspecified, uncomplicated; Z87.891 Personal history of nicotine dependence; Z79.01 Long term (current) use of anticoagulants; Z79.899 Other long term (current) drug therapy; Z80.0 Family history of malignant neoplasm of digestive organs; Z98.890 Other specified postprocedural states
CPT/HCPCS: 93312; 93320; 93325; 92960; 80053; 85025; J1940; J2704

== ENCOUNTER → 2023-05-03 | Outpatient (CLI) | payer MEDICARE ==
[2023-05-03 10:15] LABS: ALT 45 U/L (4-49); AST 31 U/L (17-59); African American GFR (CKD) 68 (>60 ml/min/1.73 sqM); Albumin 4.2 g/dL (3.5-5.0); Alkaline Phosphatase 76 U/L (38-126); Anion Gap 7 mmol/L; Blood Urea Nitrogen 20 mg/dL (9-20); Calcium 9.3 mg/dL (8.4-10.2); Carbon Dioxide 32 mmol/L (22-30); Chloride 102 mmol/L (98-107); Globulin 4.1 g/dL; Glucose 141 mg/dL (74-99); Magnesium 2.1 mg/dL (1.6-2.3); Non-African American GFR(CKD) 59 (>60 ml/min/1.73 sqM); Sodium 141 mmol/L (137-145); Total Bilirubin 1.3 mg/dL (0.2-1.3); Total Protein 8.3 g/dL (6.3-8.2)
== END | disposition home or self-care (01) ==
LOC: LABWHC1 09:35
PROVIDERS: ATTEND Student in an Organized Health Care Education/Training Program
DX: I50.9 Heart failure, unspecified (principal); N18.9 Chronic kidney disease, unspecified
CPT/HCPCS: 36415; 80053; 83735

== ENCOUNTER 2023-05-14 07:05 | Day surgery (SDC) | payer MEDICARE ==
[2023-05-11 08:47] VITALS: BMI 26.7
[~2023-05-14 07:05] MED LIST changes: +ALPRAZolam 0.25 MG TAB PO PRN; +ALPRAZolam 0.5 MG TAB PO PRN; +ASPIRIN 325 MG TAB PO STA; -LACTATED RINGERS 1,000 ML IV SCH; -LIDOCAINE 1% (10MG/ML) FOR IV START INTRADERMA PRN; +NITROGLYCERIN SL TABS 0.4 MG TAB SUBLINGUAL PRN; -SODIUM CHLORIDE 0.9% 1,000 ML IV SCH; +SODIUM CHLORIDE 0.9% 1,000 ML in EMPTY BAG 1 BAG IV SCH
[2023-05-14] MEDS ORDERED: SODIUM CHLORIDE 0.9% 1,000 ML IV ONE (07:24)
[2023-05-14 08:10] VITALS: RESP 16; TEMP 98.3
[2023-05-14] MEDS ORDERED: fentaNYL (PF) 50 MCG/ML 2 ML AMP ONE (09:45)
[2023-05-14] MEDS ORDERED: LIDOCAINE 1% INJ 10MG/ML (20 ML MDV) ONE (09:45)
[2023-05-14] MEDS ORDERED: HEPARIN SODIUM 1,000 UN/ML (10ML VL) ONE (09:45)
[2023-05-14] MEDS ORDERED: VERAPAMIL 2.5 MG/ML 2 ML AMP ONE (09:45)
[2023-05-14] MEDS ORDERED: MIDAZOLAM 2 MG/2 ML VIAL IVP ONE (09:53)
[2023-05-14] MEDS ORDERED: fentaNYL (PF) 50 MCG/ML 2 ML AMP IVP ONE (09:53)
[2023-05-14] MEDS ORDERED: LIDOCAINE 1% INJ 10MG/ML (20 ML MDV) SQ ONE (09:54)
[2023-05-14] MEDS ORDERED: VERAPAMIL 2.5 MG/ML 4 ML VIAL INTRAARTER ONE (09:56)
[2023-05-14] MEDS ORDERED: HEPARIN SODIUM 1,000 UN/ML (10ML VL) IVP ONE (09:58)
[2023-05-14] MEDS ORDERED: IOPAMIDOL-370 100ML BTL INJ ONE (10:12)
[2023-05-14] MEDS ORDERED: RX INFO: IV CONTRAST WAS GIVEN 1 EACH MISC MISCELLANE PRN (10:21)
--- NOTE | 2023-05-14 10:25 | P.CARDCATH ---
Date of Procedure: 05/14/23 Description of Procedure: DIAGNOSTIC CORONARY ANGIOGRAPHY and LEFT HEART CATH REPORT PROCEDURES PERFORMED: Left heart catheterization Selective coronary angiography Moderate conscious sedation 18 mins Right radial access INDICATION: Unstable angina, Shortness of breath with minimal exertion, NYHA class III symptoms. In March patient was admitted to the hospital because of RSV pneumonia and had atrial fibrillation with RVR with significant palpitations and shortness of breath. He underwent NILO cardioversion which was successful. But on clinic follow-up 1 week later, he was still reporting shortness of breath and palpitations. He was noticed that he was in atrial fibrillation with RVR. Pat ient was scheduled for an outpatient nuclear stress test. Patient was followed up 2 weeks later and still reported significant symptoms. Due to significant shortness of breath with minimal activity and substernal chest pressure, he was scheduled for a heart catheterization and stress test was canceled. CONSENT: I have explained the procedural steps of above-mentioned procedures in layman's terms to the patient. I discussed the risks (including but not limited to stroke, emergent vascular or cardiac surgery or ), benefits and alternative therapies for the above-mentioned procedure. I discussed the risks of sedation/analgesia and blood product administration (if indicated). The patient has indicated understanding and acceptance of these risks. Conscious Sedation: Patient's ECG, heart rate, blood pressure, pulse oximetry were monitored throughout the duration of procedure under my direct supervision. [2] mg Versed and [50] mg Fentanyl were used for induction of moderate conscious sedation. Total duration of moderate concious sedation 18 minutes. PROCEDURE: After explaining the risks, benefits and alternatives of the above mentioned procedures in detail to the patient, informed consent was obtained. Patient was taken to the catheterization lab, prepped and draped in usual sterile fashion using universal precuations. Barbow and capo test were performed to confirm adequate perfusion to fingers. Ultrasound was used to identify the radial artery. 1% lidocaine was infiltrated over the right radial artery. A 6-Slovak sheath was placed and secured in the right radial artery using modified Seldinger technique. The sheath was flushed and 5 mg verapamil was administered intra-arterially. J tipped wire was advanced under fluoroscopic guidance. Once the wire tip re ached aortic root 6000 units of IV heparin was given. Over the wire JR4 diagnostic catheter was advanced. The wire in place the catheter was manipulated to cross the aortic valve and entered into LV under fluoroscopy guidance. The wire was removed and the catheter was flushed. LV pressures were obtained and pullback was performed under fluoroscopy. Catheter was manipulated to selectively engage the right coronary ostium. Right coronary angiography was performed in different angiographic projections. The JR4 diagnostic catheter was exchanged for a JL 4 diagnostic catheter over the J-wire. The wire was removed, catheter was flushed and manipulated under fluoroscopy to selectively engaged the left coronary ostium. Left coronary angioplasty was performed in different angiographic projections. Catheter was removed over the wire. Radial sheath was flushed. The right radial sheath was removed and a TR band was placed with excellent patent hemostasis was achieved. The patient tolerated the procedure well. Patient was transported back to the post catheterization holding area in stable condition. Angiographic images were reviewed in detail. HEMODYNAMICS: Aortic Pressure: 116/86 mmHg. LV pressure: LVEDP 10 mmHg. There was no significant gradient across the aortic valve. SELECTIVE CORONARY ARTERIOGRAPHY: LEFT MAIN: The left main is a large caliber vessel which trfurcates into the LAD, Ramus and circumflex. Left main appears angiographically normal. LEFT ANTERIOR DESCENDING CORONARY ARTERY: LAD is a large caliber vessel which wraps around to the apex. Proximal LAD appears angiographically normal. Mid LAD appears angiographically normal. Distal LAD appears angiographically normal. Medium size diagonal branch which appears angiographically normal RAMUS INTERMEDIUS: Angiographically normal LEFT CIRCUMFLEX CORONARY ARTERY: It is nondominant vessel. Left circumflex is a moderate caliber vessel. It appears angiographically normal. RIGHT CORONARY ARTERY: Dominant vessel. The right coronary artery is a large caliber vessel which gives PDA and PLV branch. It appears angiographically normal. IMPRESSION: Angiographically normal coronary arteries as described above. Normal left sided filling pressures PLAN: Aggressive risk factor modification per most recent ACC/AHA guidelines. 100 cc fluids for 3 hours Discharge home in 3 hours Follow-up in the office in 1-2 weeks. Performing Physician Gregg Smith MD, FACC, RPVI Thank you for allowing [facility] to participate in this patient's care. Feel free to reach out in case of any followup questions. Please cc this report to Dr. Seht Lay,
[2023-05-14] MEDS ORDERED: SODIUM CHLORIDE 0.9% 1,000 ML IV SCH (10:30)
[2023-05-14 14:39] VITALS: BP 126/73; PULSE 76
== END 2023-05-14 14:07 | disposition home or self-care (01) ==
LOC: CATHCVL 07:05
PROVIDERS: ATTEND Student in an Organized Health Care Education/Training Program
DX: I48.0 Paroxysmal atrial fibrillation (principal); J12.1 Respiratory syncytial virus pneumonia; I10 Essential (primary) hypertension; F17.210 Nicotine dependence, cigarettes, uncomplicated; I31.9 Disease of pericardium, unspecified; Z79.01 Long term (current) use of anticoagulants; Z79.51 Long term (current) use of inhaled steroids; Z79.899 Other long term (current) drug therapy
CPT/HCPCS: 93458; 76937; C1769 ×2; C1894; J2250; J2001; J3010; J1644; Q9967

== ENCOUNTER 2023-09-14 09:38 | Day surgery (SDC) | payer MEDICARE ==
[2023-09-10 08:50] VITALS: BMI 25.8
[2023-09-14] MEDS ORDERED: MIDAZOLAM 2 MG/2 ML VIAL ONE (11:55)
[2023-09-14] MEDS: SODIUM CHLORIDE 0.9% 1,000 ML IV ONE (11:55)
[2023-09-14] MEDS ORDERED: HEPARIN SODIUM,PORCINE 10,000 UNIT/ML 1 ML VIAL ONE (11:55)
[2023-09-14] MEDS ORDERED: LIDOCAINE 1% INJ 10MG/ML (20 ML MDV) ONE ×2 (11:55→12:11)
[2023-09-14] MEDS ORDERED: fentaNYL (PF) 50 MCG/ML 2 ML AMP ONE (11:55)
[2023-09-14] MEDS ORDERED: PHENYLEPHRINE 10 MG/ML VIAL ONE (11:55)
[2023-09-14] MEDS ORDERED: PROPOFOL 10 MG/ML 20 ML VIAL IV ONE (11:55)
[2023-09-14] MEDS ORDERED: SUCCINYLCHOLINE CHLORIDE 200 MG/10 ML VIAL IV ONE (11:55)
[2023-09-14] MEDS ORDERED: ROCURONIUM 10 MG/ML (5 ML VIAL) IV ONE (11:55)
[2023-09-14] MEDS: HEPARIN SOD,PORK IN 0.45% NACL 25,000 UNIT in 0.45% NACL 1 250ML.BAG IV ONE (12:42)
[2023-09-14] MEDS: LIDOCAINE 1% INJ 10MG/ML (20 ML MDV) SQ ONE (12:42)
[2023-09-14] MEDS: IOPAMIDOL-370 100ML BTL INJ ONE (14:34)
[2023-09-14] MEDS ORDERED: ACETAMINOPHEN TAB 325 MG TAB PO PRN (15:20)
--- NOTE | 2023-09-14 15:44 | P.HPCAR ---
History of Present Illness This is Dr. Gandhi dictating an H/P on this patient The patient was interviewed and examined IMPRESSION / ASSESSMENT: Persistent atrial fibrillation for at least 10 years Symptomatic with shortness of breath tiredness and fatigue lack of energy Failed flecainide No significant coronary artery disease on coronary angiography Polycythemia hematocrit 54 Left atrial enlargement Heavy smoking in the past stopped in 2014 PLAN: Continue anticoagulation A-fib ablation HPI Patient continues to remain tired and fatigued despite adequate control of atrial fibrillation rate He has been persistently in atrial fibrillation for greater than 9 years now He also complains of chest discomfort but his coronary arteries do not reveal any evidence for significant CAD He had left atrial enlargement He has failed treatment He continues to be tired short of breath with chest discomfort ROS: No fever chills or rigors, no cough, phlegm or expectoration, no nausea, vomiting or diarrhea, no hematuria, dysuria, no musculoskeletal complaints, no strokes or seizures, no skin lesions. EXAMINATION: 135/97 mmHg 148/78 Pulse rate in the 70s and 80s afebrile Breath sounds are reduced bilaterally no rhonchi no crackles Heart sounds are irregular no murmurs No JVD Abdomen soft nontender No lower extremity edema REVIEW OF LABS, ECG & MEDICAL DATA TSH normal at 2.9 White count 8.6 thousand, hemoglobin 17.2 and hematocrit 54.6 Platelet count 149,000 Sodium 144, potassium 4.9, BUN 11 and creatinine 1.3 Hemoglobin A1c 6.0 Physical Exam Vitals: Vital Signs Temp Pulse Resp BP BP Pulse Ox 09/14/23 09:50 97.6 F 74 20 148/78 135/97 100 Intake and Output 09/14/23 09/14/23 09/14/23 06:59 14:59 22:59 Intake Total 542 0 Balance 542 0 Intake: IV 542 0 Other: Weight 98 kg Past Medical History Past Medical History: Atrial Fibrillation, Chest Pain / Angina, COPD, Hyperlipidemia, Hypertension, Renal Disease Additional Past Medical History / Comment(s): Recent hospitalization r/t RSV 04-12-23,Other HX: Paroxysmal afib, kidney stones., wrist fx's as a child, hx of pericarditis with a-fib (2016)., recent hospitalization with +RSV, per pt's , "His DrTammi is sending him to a blood dr." (she didn't know the reason) Pt has an appointment the end of May 2023. History of Any Multi-Drug Resistant Organisms: None Reported Past Surgical History: Heart Catheterization, Tonsillectomy Additional Past Surgical History / Comment(s): Recent cardioversion and NILO 04-29-2023, cardiac cath 2023, LITHOTRIPSY., SHOULDER INJECTIONS, CATARACTS bi lat. COLONOSCOPY Past Anesthesia/Blood Transfusion Reactions: No Reported Reaction Smoking Status: Former smoker - Past Family History Mother History Unknown: Yes Family Medical History: Cancer Additional Family Medical History / Comment(s): DIVERTICULITIS ,breast cancer. Father Family Medical History: Cancer Additional Family Medical History / Comment(s): pancreatic cancer Physical Examination Vital Signs Temp Pulse Resp BP BP Pulse Ox 09/14/23 09:50 97.6 F 74 20 148/78 135/97 100 Intake and Output 09/14/23 09/14/23 09/14/23 06:59 14:59 22:59 Intake Total 542 0 Balance 542 0 Intake: IV 542 0 Other: Weight 98 kg Results Current Medications Generic Name Dose Route Start Last Admin Trade Name Freq PRN Reason Stop Dose Admin Acetaminophen 650 mg 09/14/23 15:20 Acetaminophen Tab 325 Mg Tab PO Q6HR PRN Mild Pain (Scale 1 to 3) Apixaban 5 mg 09/14/23 21:00 Apixaban 5 Mg Tab PO BID KERA Protocol Atorvastatin Calcium 20 mg 09/14/23 21:00 Atorvastatin 20 Mg Tab PO HS KERA Acetaminophen 1,000 mg/ IV 100 mls @ 400 mls/hr 09/14/23 15:45 Solution IVPB 09/14/23 15:59 ONCE ONE Losartan Potassium 25 mg 09/15/23 09:00 Losartan 25 Mg Tab PO DAILY KERA Sodium Chloride 12 ml 09/14/23 15:20 Sodium Chloride 0.9% Flush 10 Ml Syringe IV Q12HR PRN Line Flush Intake and Output 09/14/23 09/14/23 09/14/23 06:59 14:59 22:59 Intake Total 542 0 Balance 542 0 Intake: IV 542 0 Other: Weight 98 kg Patient Weight 09/15/23 06:59 Weight 98 kg
--- NOTE | 2023-09-14 15:52 | P.EPPROC ---
- EP Procedure Note Electrophysiology Procedure Note: PROCEDURE A. fib ablation DIAGNOSIS Persistent atrial fibrillation, symptomatic, refractory to therapy RESULT No left atrial appendage mass seen on intracardiac echo, preserved LV systolic function, left atrial enlargement Large pulmonary veins especially right-sided veins with thick mild pedicles requiring multiple ablations per vein for complete isolation Left atrial roof ablation Left atrial posterior wall ablation Left atrial septal ablation Successful A. fib ablation/pulmonary vein isolation of all veins using cryo- ablation Complete entrance block in all 4 veins confirmed No evidence for phrenic nerve injury Esophageal deflection YES, right-sided esophagus Despite complete isolation of all pulmonary veins at an antral level, left atrial roof ablation and left atrial posterior wall ablation as well as left atrial septal ablation patient remained in atrial fib Therefore, electrical cardioversion with a synchronized shock across the chest YES PROCEDURE DETAILS Written informed consent prior to procedure. Patient brought to the EP lab. General anesthesia given. Heparin administered. A city maintained above 300 seconds Both groins prepped and draped per protocol and venous sheaths placed. Esophagus intubated, circa catheter for temperature monitoring an endoscope for possible esophageal deflection. Phrenic nerve monitoring performed. Esophageal temperature monitoring performed. Esophageal deflection performed if circa catheter overlapping with the balloon or circa temperature less than 27.5C Intracardiac echocardiography performed. Pericardium evaluated. Left atrial appendage evaluated. Left atrium evaluated along with pulmonary veins Transseptal catheterization performed under fluoroscopic guidance and intracardiac echo guidance Cryoablation sheath exchanged, balloon catheter along with achieve catheter placed in the left atrium. Pulmonary veins isolated in the following sequence: Left superior pulmonary vein followed by left inferior pulmonary vein, followed by right inferior pulmonary vein and lastly right superior pulmonary vein. Phrenic nerve stimulation along with capture thresholds within the SVC and right superior pulmonary vein to identify the phrenic nerve proximity to the cryo- balloon. Pulmonary veins isolated and confirmed with entrance and exit block. Phrenic nerve integrity confirmed at the end of the procedure Ablation of the left atrial roof performed with sequential lesions from the left superior to the right superior pulmonary veins. Ablation of the electrograms confirmed Ablation of the left atrial septum performed with cannulation of the inferior branch of the right superior vein to achieve ablation of the posterior septum of the left atrium. Ablation of electrograms confirmed Ablation of the left atrial posterior wall from the left inferior to the right inferior pulmonary veins, spanning the entire distance and overlapping with the roof ablations Electrical cardioversion performed for persistence of atrial fibrillation despite successful ablation. Diagnostic catheters for the high right atrium, His bundle, coronary sinus placed. LA and RA pressures recorded RA pressure: LA pressure: 23/08/09 Diagnostic EP study with coronary sinus pacing and recording Baseline measurements: QRS 106 ms, QT 354 ms AH 88 and HV 35 ms Venous sheaths were removed and hemostasis assured with a closure device. Patient extubated and transferred to recovery Increase procedural time During ablation multiple attempts had to be made to move the esophagus a safe distance of the from the pulmonary vein draining cryoablation, to avoid excessive thermal cooling of the esophagus This took extra time and effort to keep the esophagus a safe distance away from the cryoablation balloon. This was a right-sided esophagus, extreme right side and multiple attempts were made to move it away from the cryoballoon Very large pulmonary veins with thick mild pedicles that exhibited delayed isolation despite excellent occlusion and excellent temperature profile during each ablation. All veins especially the right-sided veins required multiple ablations by subcannulating each of the tributaries There was also an accessory pulmonary vein on the roof just outside the right superior pulmonary vein. This zone was particularly refractory and required 2 ablations for complete isolation PROCEDURES PERFORMED Diagnostic EP study CS pacing and recording Left and right transseptal catheterization Catheter the mapping of the tachycardia Intracardiac echocardiography Pulmonary vein isolation with transseptal and comprehensive EPS, [id number] Extended procedure duration Left atrial roof line, +[id number] Left atrial septal ablation, +[id number] Linear ablation, left atrium posterior wall, +[id number] Electrical cardioversion with a synchronized shock across the chest [id number]
[2023-09-14] MEDS: ACETAMINOPHEN IV (For NPO) 1,000 MG/100 ML VIAL IVPB ONE (16:06)
[2023-09-14] MEDS: ACETAMINOPHEN IV (For NPO) 1,000 MG in EMPTY BAG 1 BAG IVPB ONE (16:06)
[2023-09-14] MEDS: SODIUM CHLORIDE 0.9% 1,000 ML IV SCH (16:35)
[2023-09-14] MEDS: LACTATED RINGERS 1,000 ML IV SCH (16:35)
[2023-09-14] MEDS: ATORVASTATIN 20 MG TAB PO SCH (22:14)
[2023-09-14] MEDS: APIXABAN 5 MG TAB PO SCH (22:14)
[2023-09-15 07:26] VITALS: BP 149/90; PULSE 74; RESP 20; TEMP 98
--- NOTE | 2023-09-15 08:05 | P.DS ---
Providers Attending physician: Guillermo Gandhi Primary care physician: [facility] Course: Patient is resting comfortably in bed. He does complain of mild pleuritic chest discomfort. No dizziness no lightheadedness minimal sore throat On examination blood pressure 126/79 mmHg pulse rate in the 70s afebrile Normal heart sounds no rub no gallop no murmurs Clear lungs no rhonchi no crackles Groins of healed well no hematoma no swelling Perclose closure was used in the right femoral vein Vascade closure used in the left femoral vein puncture sites Impression Longstanding persistent atrial fibrillation for greater than 10 years with symptoms of tiredness fatigue lack of energy despite adequate rate control Status post A-fib ablation with wide cervical pulmonary vein isolation, ablation of the left atrial roof and ablation of the posterior wall of the left atrium Mild sinus bradycardia and therefore the dose of metoprolol was reduced to 25 mg twice daily Plan Continue Eliquis lifelong Continue reduced dose of metoprolol and later switched to long-acting metoprolol to reduce the number of pills as the patient requested Plan - Discharge Summary Discharge Rx Participant: No New Discharge Prescriptions: New Metoprolol Tartrate 25 mg PO BID #180 tab Discontinued Metoprolol Tartrate [Lopressor] 50 mg PO BID 30 Days #30 tab No Action Albuterol Inhaler [Ventolin Hfa Inhaler] 2 puff INHALATION BID PRN PRN Reason: Shortness Of Breath FLUoxetine HCL [PROzac] 10 mg PO HS Losartan [Cozaar] 25 mg PO DAILY Apixaban [Eliquis] 5 mg PO BID 30 Days #60 tab Rosuvastatin Calcium 10 mg PO HS 30 Days #30 tab Discharge Medication List Albuterol Inhaler [Ventolin Hfa Inhaler] 2 puff INHALATION BID PRN 04/23/23 [History] Losartan [Cozaar] 25 mg PO DAILY 04/23/23 [History] Apixaban [Eliquis] 5 mg PO BID 30 Days #60 tab 05/14/23 [Rx] Rosuvastatin Calcium 10 mg PO HS 30 Days #30 tab 05/14/23 [Rx] FLUoxetine HCL [PROzac] 10 mg PO HS 09/10/23 [History] Metoprolol Tartrate 25 mg PO BID #180 tab 09/14/23 [Rx] Follow up Appointment(s)/Referral(s): Darci Smith MD [Medical Doctor] - 1 Week Activity/Diet/Wound Care/Special Instructions: Post EP study - Ablation instructions 1. Keep access sites dry for 2 days. 2. No heavy lifting or straining for 2 days. 3. Avoid bending the hips repeatedly for 2 days. 4. You may go up and down stairs slowly Call if the following is noted 1. Bleeding, increasing swelling or pain at the access sites. 2. Increasing chest discomfort, especially upon taking a deep breath. 3. Increasing shortness of breath, at rest or with exertion. 4. Undue cough / phlegm 5. Difficulty or pain while swallowing. 6. Pain or change in color in the extremities. 7. Fever, chills, rigors. 8. Increasing headache or neurologic symptoms. 9. Dizziness, fainting, palpitations Reduce the dose of metoprolol to 25 mg twice daily Continue Eliquis and continue all other medications unchanged
[2023-09-15] MEDS: LOSARTAN 25 MG TAB PO SCH (08:38)
[2023-09-15] MEDS: COLCHICINE 0.6 MG EACH PO SCH (08:38)
== END 2023-09-15 11:47 | disposition home or self-care (01) ==
LOC: CATHEP 09:38 → 6NMEDSUR 15:19 → CATHEP 09-15 11:47
PROVIDERS: ATTEND Internal Medicine Clinical Cardiac Electrophysiology
DX: I48.11 Longstanding persistent atrial fibrillation (principal); I11.9 Hypertensive heart disease without heart failure; E78.5 Hyperlipidemia, unspecified; J44.9 Chronic obstructive pulmonary disease, unspecified; Z79.01 Long term (current) use of anticoagulants; Z79.899 Other long term (current) drug therapy; Z87.891 Personal history of nicotine dependence
CPT/HCPCS: 92960; 93656; 93657; 86900; 86901; 84443; 86850; C1894 ×2; C1769 ×3; C1760 ×2; C1730; C1759; C1893; C1733; C1766; J2001; J0131; Q9967; J1644